=== PATIENT | female | born 1935 | race Caucasian/White ===

== ENCOUNTER 2022-12-07 12:31 | Inpatient (IN) | payer OTHER ==
[2022-12-07] MEDS ORDERED: LACTATED RINGERS SOLUTION 1000 ML INFUS.BAG IV ONE (13:21)
[2022-12-07] MEDS ORDERED: SODIUM CHLORIDE 1,000 ML IV STA (13:29)
[2022-12-07 14:36] LABS: LACTIC ACID 2.7 mmol/L (0.4-2.0)
[2022-12-07 14:48] LABS: VENOUS BASE EXCESS -1.5 mmol/L (-2-2); VENOUS O2 SATURATION 45.7 % (70-80); VENOUS PCO2 37.9 mmHg (38-52); VENOUS PH 7.402 (7.310-7.410)
[2022-12-07 14:52] LABS: BASO % 0.7 % (0-2.0); EOS % 2.3 % (0-4.5); HEMATOCRIT 26.1 % (32.4-45.2); HEMOGLOBIN 8.7 GM/dL (10.7-15.3); LYMPH % 10.8 % (8-40); MCH 31.6 pg (25.7-33.7); MCHC 33.3 g/dl (32.0-36.0); MEAN CELL VOLUME 95.1 fl (80-96); MEAN PLT VOLUME 10.2 fl (7.5-11.1); MONO % 4.5 % (3.8-10.2); NEUT % 81.7 % (42.8-82.8); PLATELET COUNT 376 10^3/uL (134-434); RBC 2.75 M/mm3 (3.60-5.2); RDW 17.6 % (11.6-15.6); WHITE BLOOD COUNT 8.6 K/mm3 (4.0-10.0)
[2022-12-07 14:58] LABS: EPI CELLS >36 /uL (0-25.1); HYALINE CASTS 2 /uL (0-3.1); URINE APPEARANCE CLEAR; URINE BACTERIA 20 /uL (0-1359); URINE BILIRUBIN NEGATIVE (NEGATIVE); URINE COLOR YELLOW; URINE GLUCOSE (UA) NEGATIVE (NEGATIVE); URINE KETONE NEGATIVE (NEGATIVE); URINE LEUK ESTERASE NEGATIVE (NEGATIVE); URINE NITRITE NEGATIVE (NEGATIVE); URINE PROTEIN NEGATIVE (NEGATIVE); URINE WBC 26 /uL (0-25.8)
[2022-12-07 15:00] LABS: INR 2.44 (0.83-1.09); PROTHROMBIN TIME (PATIENT) 28.1 SEC (9.7-13.0)
[2022-12-07 15:03] LABS: ACTIVATED PTT 35.7 SECONDS (25.2-36.5)
[2022-12-07 15:04] LABS: POTASSIUM 3.7 mmol/L (3.5-5.1)
[2022-12-07 15:07] LABS: ALBUMIN 3.2 g/dl (3.4-5.0); CALCIUM 8.7 mg/dL (8.5-10.1); MAGNESIUM 1.9 mg/dL (1.8-2.4)
[2022-12-07 15:10] LABS: CREATININE 0.9 mg/dL (0.55-1.3)
[2022-12-07 15:11] LABS: TOT PROT 7.1 g/dl (6.4-8.2)
[2022-12-07 15:12] LABS: BILIRUBIN,TOTAL 0.9 mg/dL (0.2-1)
[2022-12-07 15:16] LABS: URINE RBC 133.7 /uL (0-23.9)
[2022-12-07 19:30] LABS: LACTIC ACID 2.3 mmol/L (0.4-2.0)
[2022-12-07] MEDS ORDERED: levETIRAcetam 500 MG/5 ML INJECTION VIAL IVPB ONE (23:30)
[2022-12-08] MEDS ORDERED: levETIRAcetam 500 MG/5 ML INJECTION VIAL IVPB ONE ×2 (08:04→08:09)
[2022-12-08 08:54] LABS: POTASSIUM 3.5 mmol/L (3.5-5.1)
[2022-12-08 09:01] LABS: BLOOD UREA NITROGEN 28.1 mg/dL (7-18); MAGNESIUM 1.9 mg/dL (1.8-2.4); PHOSPHOROUS 3.4 mg/dL (2.5-4.9)
[2022-12-08 09:02] LABS: ALBUMIN 3.4 g/dl (3.4-5.0)
[2022-12-08 09:05] LABS: CREATININE 0.9 mg/dL (0.55-1.3)
[2022-12-08 09:06] LABS: BILIRUBIN,TOTAL 1.2 mg/dL (0.2-1); TOT PROT 7.1 g/dl (6.4-8.2)
[2022-12-08] MEDS ORDERED: levETIRAcetam 500 MG/5 ML INJECTION VIAL IVPB SCH (10:00)
[2022-12-08] MEDS: ASPIRIN COATED 81 MG TABLET.EC PO SCH (10:07)
[2022-12-08 10:25] LABS: BASO % 0.4 % (0-2.0); EOS % 0.5 % (0-4.5); HEMATOCRIT 26.2 % (32.4-45.2); HEMOGLOBIN 8.6 GM/dL (10.7-15.3); LYMPH % 8.9 % (8-40); MCH 32.1 pg (25.7-33.7); MEAN CELL VOLUME 97.3 fl (80-96); NEUT % 87.2 % (42.8-82.8); RBC 2.69 M/mm3 (3.60-5.2); RDW 18.7 % (11.6-15.6); WHITE BLOOD COUNT 11.6 K/mm3 (4.0-10.0)
[2022-12-08 10:33] LABS: MEAN PLT VOLUME 8.8 fl (7.5-11.1); PLATELET COUNT 231 10^3/uL (134-434)
[2022-12-08] MEDS: WARFARIN NA 2.5 MG TABLET PO SCH (17:34)
[2022-12-08] MEDS: levETIRAcetam 500 MG/5 ML INJECTION VIAL IVPB SCH (21:30)
[2022-12-08] MEDS: ATORVASTATIN CA 80 MG TABLET (FP) PO SCH ×2 (21:33→21:34)
[2022-12-08 22:07] LABS: INR 1.71 (0.83-1.09); PROTHROMBIN TIME (PATIENT) 19.7 SEC (9.7-13.0)
[2022-12-09 09:28] LABS: INR 1.56 (0.83-1.09)
[2022-12-09] MEDS: levETIRAcetam 500 MG/5 ML INJECTION VIAL IVPB SCH ×2 (09:43→21:04)
[2022-12-09] MEDS: ASPIRIN COATED 81 MG TABLET.EC PO SCH (09:43)
[2022-12-09] MEDS: ENOXAPARIN NA (PORCINE) 40 MG/0.4 ML DISP.SYRIN SQ SCH (09:43)
[2022-12-09 09:46] LABS: CHLORIDE 111 mmol/L (98-107); POTASSIUM 3.9 mmol/L (3.5-5.1); SODIUM 142 mmol/L (136-145)
[2022-12-09 09:55] LABS: HEMATOCRIT 23.4 % (32.4-45.2); HEMOGLOBIN 7.9 GM/dL (10.7-15.3); MCH 32.2 pg (25.7-33.7); MCHC 33.6 g/dl (32.0-36.0); MEAN CELL VOLUME 95.8 fl (80-96); MEAN PLT VOLUME 9.4 fl (7.5-11.1); PLATELET COUNT 288 10^3/uL (134-434); RBC 2.44 M/mm3 (3.60-5.2)
[2022-12-09] MEDS ORDERED: MIDODRINE HCL 5 MG TABLET PO SCH (10:00)
[2022-12-09] MEDS ORDERED: ENOXAPARIN NA (PORCINE) 60 MG/0.6 ML DISP.SYRIN SQ SCH (10:00)
[2022-12-09 10:04] LABS: CALCIUM 8.7 mg/dL (8.5-10.1)
[2022-12-09 10:05] LABS: ANION GAP 6 MMOL/L (8-16); BLOOD UREA NITROGEN 27.9 mg/dL (7-18); CO2 25 mmol/L (21-32)
[2022-12-09 10:06] LABS: GLUCOSE,RANDOM 91 mg/dL (74-106)
[2022-12-09 10:09] LABS: PHOSPHOROUS 3.1 mg/dL (2.5-4.9)
[2022-12-09 10:10] LABS: CREATININE 0.7 mg/dL (0.55-1.3); SGPT/ALT 36 U/L (13-61)
[2022-12-09 10:11] LABS: IRON SERUM 40 ug/dL (50-175); SGOT/AST 70 U/L (15-37); TOT PROT 6.4 g/dl (6.4-8.2)
[2022-12-09 10:12] LABS: ALK PHOS 102 U/L (45-117); TOTAL IRON BINDING CAPACITY 224 ug/dL (250-450)
[2022-12-09 10:13] LABS: BILIRUBIN,TOTAL 0.6 mg/dL (0.2-1)
[2022-12-09 14:28] VITALS: BMI 16.2
[2022-12-09] MEDS ORDERED: ACETAMINOPHEN 325 MG TABLET (FP) PO PRN (16:43)
[2022-12-09] MEDS: WARFARIN NA 2.5 MG TABLET PO SCH (18:45)
[2022-12-09] MEDS: ATORVASTATIN CA 80 MG TABLET (FP) PO SCH (21:04)
[2022-12-10 08:18] LABS: HEMOGLOBIN 7.9 GM/dL (10.7-15.3); MCH 31.9 pg (25.7-33.7); MCHC 32.9 g/dl (32.0-36.0); MEAN CELL VOLUME 96.7 fl (80-96); MEAN PLT VOLUME 9.5 fl (7.5-11.1); PLATELET COUNT 257 10^3/uL (134-434); RBC 2.48 M/mm3 (3.60-5.2); RDW 18.3 % (11.6-15.6); WHITE BLOOD COUNT 7.4 K/mm3 (4.0-10.0)
[2022-12-10 08:20] LABS: INR 1.28 (0.83-1.09); PROTHROMBIN TIME (PATIENT) 14.8 SEC (9.7-13.0)
[2022-12-10 08:35] LABS: POTASSIUM 3.9 mmol/L (3.5-5.1)
[2022-12-10 08:37] LABS: BLOOD UREA NITROGEN 26.2 mg/dL (7-18)
[2022-12-10 08:38] LABS: CALCIUM 8.2 mg/dL (8.5-10.1); MAGNESIUM 2.1 mg/dL (1.8-2.4)
[2022-12-10 08:41] LABS: CREATININE 0.7 mg/dL (0.55-1.3); PHOSPHOROUS 3.2 mg/dL (2.5-4.9)
[2022-12-10] MEDS: ENOXAPARIN NA (PORCINE) 40 MG/0.4 ML DISP.SYRIN SQ SCH (12:13)
[2022-12-10] MEDS: levETIRAcetam 500 MG/5 ML INJECTION VIAL IVPB SCH ×2 (12:13→23:15)
[2022-12-10] MEDS: WARFARIN NA 2.5 MG TABLET PO SCH (17:02)
[2022-12-10] MEDS: ATORVASTATIN CA 80 MG TABLET (FP) PO SCH (23:15)
[2022-12-11 08:50] LABS: HEMATOCRIT 26.1 % (32.4-45.2); HEMOGLOBIN 8.5 GM/dL (10.7-15.3); MCH 32.3 pg (25.7-33.7); MCHC 32.6 g/dl (32.0-36.0); MEAN CELL VOLUME 99.1 fl (80-96); MEAN PLT VOLUME 10.3 fl (7.5-11.1); PLATELET COUNT 300 10^3/uL (134-434); RBC 2.63 M/mm3 (3.60-5.2); RDW 18.6 % (11.6-15.6); WHITE BLOOD COUNT 7.1 K/mm3 (4.0-10.0)
[2022-12-11 08:52] LABS: INR 1.42 (0.83-1.09); PROTHROMBIN TIME (PATIENT) 16.4 SEC (9.7-13.0)
[2022-12-11 09:03] LABS: POTASSIUM 4.2 mmol/L (3.5-5.1)
[2022-12-11 09:06] LABS: BLOOD UREA NITROGEN 23.4 mg/dL (7-18); CALCIUM 8.3 mg/dL (8.5-10.1); MAGNESIUM 2.1 mg/dL (1.8-2.4)
[2022-12-11 09:09] LABS: PHOSPHOROUS 2.8 mg/dL (2.5-4.9)
[2022-12-11 09:10] LABS: CREATININE 0.7 mg/dL (0.55-1.3)
[2022-12-11 09:11] LABS: TOT PROT 6.5 g/dl (6.4-8.2)
[2022-12-11] MEDS: levETIRAcetam 500 MG/5 ML INJECTION VIAL IVPB SCH ×2 (09:17→21:18)
[2022-12-11] MEDS ORDERED: ENOXAPARIN NA (PORCINE) 40 MG/0.4 ML DISP.SYRIN SQ SCH (15:15)
[2022-12-11] MEDS ORDERED: WARFARIN NA 3 MG TABLET PO SCH (18:00)
[2022-12-11] MEDS: ATORVASTATIN CA 80 MG TABLET (FP) PO SCH (21:18)
[2022-12-11] MEDS: ENOXAPARIN NA (PORCINE) 40 MG/0.4 ML DISP.SYRIN SQ SCH (21:18)
[2022-12-12 08:59] LABS: HEMATOCRIT 25.3 % (32.4-45.2); HEMOGLOBIN 8.3 GM/dL (10.7-15.3); MCH 32.5 pg (25.7-33.7); MEAN CELL VOLUME 98.6 fl (80-96); PLATELET COUNT 282 10^3/uL (134-434); RBC 2.57 M/mm3 (3.60-5.2); RDW 18.9 % (11.6-15.6); WHITE BLOOD COUNT 7.7 K/mm3 (4.0-10.0)
[2022-12-12 09:05] LABS: INR 1.51 (0.83-1.09); PROTHROMBIN TIME (PATIENT) 17.5 SEC (9.7-13.0)
[2022-12-12 09:25] VITALS: RESP 18
[2022-12-12 09:27] LABS: POTASSIUM 4.7 mmol/L (3.5-5.1)
[2022-12-12 09:33] LABS: CALCIUM 8.1 mg/dL (8.5-10.1)
[2022-12-12 09:34] LABS: BLOOD UREA NITROGEN 20.6 mg/dL (7-18)
[2022-12-12 09:36] LABS: PHOSPHOROUS 2.9 mg/dL (2.5-4.9)
[2022-12-12 09:37] LABS: CREATININE 0.7 mg/dL (0.55-1.3); TOT PROT 6.7 g/dl (6.4-8.2)
[2022-12-12] MEDS: ENOXAPARIN NA (PORCINE) 40 MG/0.4 ML DISP.SYRIN SQ SCH (09:40)
[2022-12-12] MEDS: levETIRAcetam 500 MG/5 ML INJECTION VIAL IVPB SCH (09:40)
[2022-12-12 15:16] VITALS: BP 110/42; PULSE 61; TEMP 98.1
== END 2022-12-12 17:08 | disposition home or self-care (01) | DRG 65 ==
LOC: JER 12:31 → JERBED 20:00 → J4W 12-08 00:22
PROVIDERS: ADMIT Internal Medicine; ATTEND Internal Medicine
DX: I63.511 Cerebral infarction due to unspecified occlusion or stenosis of right middle cerebral artery (principal); I50.32 Chronic diastolic (congestive) heart failure; I69.354 Hemiplegia and hemiparesis following cerebral infarction affecting left non-dominant side; I82.621 Acute embolism and thrombosis of deep veins of right upper extremity; I49.9 Cardiac arrhythmia, unspecified; R55 Syncope and collapse; D50.9 Iron deficiency anemia, unspecified; I11.0 Hypertensive heart disease with heart failure; J44.9 Chronic obstructive pulmonary disease, unspecified; E78.5 Hyperlipidemia, unspecified; I95.9 Hypotension, unspecified; R56.9 Unspecified convulsions; R79.1 Abnormal coagulation profile; I67.2 Cerebral atherosclerosis; I48.91 Unspecified atrial fibrillation; E11.9 Type 2 diabetes mellitus without complications; I69.398 Other sequelae of cerebral infarction; Z86.718 Personal history of other venous thrombosis and embolism; Z95.2 Presence of prosthetic heart valve
CPT/HCPCS: 36415; 70450-TC; 70551-TC; 71045-TC-FY; 71275-TC; 80048; 80053; 81003; 82607; 82728; 82746; 82747; 82803; 82962; 83010; 83540; 83550; 83605; 83615; 83735; 84100; 84439; 84443; 84484; 85014; 85025; 85027; 85045; 85610; 85730; 86780; 87040; 87086; 93005; 93010; 93306-TC; 93971; 95816; 97116-GP; 97162-GP; 99285-25; Q9967

== ENCOUNTER 2023-03-03 18:11 | Inpatient (IN) | payer OTHER ==
[2023-03-03 18:21] VITALS: BMI 14.6
[2023-03-03 20:04] LABS: BASO % 0.9 % (0-2.0); EOS % 3.4 % (0-4.5); HEMATOCRIT 19.7 % (32.4-45.2); MCH 32.6 pg (25.7-33.7); MCHC 34.2 g/dl (32.0-36.0); MEAN CELL VOLUME 95.6 fl (80-96); MEAN PLT VOLUME 8.8 fl (7.5-11.1); MONO % 4.8 % (3.8-10.2); NEUT % 76.9 % (42.8-82.8); PLATELET COUNT 294 10^3/uL (134-434); RBC 2.07 M/mm3 (3.60-5.2); RDW 34.4 % (11.6-15.6); WHITE BLOOD COUNT 9.5 K/mm3 (4.0-10.0)
[2023-03-03 20:07] LABS: HEMOGLOBIN 6.7 GM/dL (10.7-15.3)
[2023-03-03 20:18] LABS: POTASSIUM 3.4 mmol/L (3.5-5.1)
[2023-03-03 20:20] LABS: CALCIUM 7.9 mg/dL (8.5-10.1)
[2023-03-03 20:21] LABS: BLOOD UREA NITROGEN 33.8 mg/dL (7-18); MAGNESIUM 1.5 mg/dL (1.8-2.4)
[2023-03-03 20:26] LABS: BILIRUBIN,TOTAL 1.7 mg/dL (0.2-1); TOT PROT 6.8 g/dl (6.4-8.2)
[2023-03-03] MEDS ORDERED: MAGNESIUM 1GM/D5W - 1 GM/100 ML IVPB IVPB ONE ×2 (20:31→21:02)
[2023-03-03] MEDS ORDERED: POTASSIUM CHLORIDE ORAL LIQUID 20 MEQ/15 ML PO ONE (20:31)
[2023-03-03] MEDS ORDERED: POTASSIUM CHLORIDE ORAL LIQUID 20 MEQ/15 ML ONE (21:01)
[2023-03-03 21:22] LABS: EPI CELLS 1 /uL (0-25.1); HYALINE CASTS 0 /uL (0-3.1); PH,URINE 5.5 (5.0-8.0); URINE APPEARANCE CLEAR; URINE BACTERIA 1177 /uL (0-1359); URINE BILIRUBIN NEGATIVE (NEGATIVE); URINE COLOR YELLOW; URINE GLUCOSE (UA) NEGATIVE (NEGATIVE); URINE KETONE NEGATIVE (NEGATIVE); URINE LEUK ESTERASE 2+ (NEGATIVE); URINE NITRITE NEGATIVE (NEGATIVE); URINE PROTEIN 2+ (NEGATIVE); URINE WBC 861 /uL (0-25.8)
[2023-03-03] MEDS ORDERED: CEFTRIAXONE 1,000 MG in DEXTROSE 5%-WATER - 50 ML IVPB ONE (21:25)
[2023-03-03 21:30] LABS: URINE RBC 1207.9 /uL (0-23.9)
[2023-03-03] MEDS ORDERED: CEFTRIAXONE 1 GM/50 ML BAG ONE (21:32)
[2023-03-03 21:38] LABS: POTASSIUM 3.4 mmol/L (3.5-5.1)
[2023-03-03 21:40] LABS: CALCIUM 7.6 mg/dL (8.5-10.1)
[2023-03-03 21:41] LABS: BLOOD UREA NITROGEN 33.5 mg/dL (7-18)
[2023-03-03 21:43] LABS: CREATININE 0.9 mg/dL (0.55-1.3)
[2023-03-03] MEDS ORDERED: ACETAMINOPHEN 1000 MG/100 ML BAG IVPB ONE (22:12)
[2023-03-03] MEDS ORDERED: ACETAMINOPHEN INJECTION 100 ML IVPB ONE (22:15)
[2023-03-04] MEDS ORDERED: FUROSEMIDE 100 MG/10 ML INJECTABLE VIAL IVPUSH SCH (00:30)
[2023-03-04] MEDS ORDERED: FUROSEMIDE 40 MG/4 ML INJECTABLE VIAL ONE ×2 (00:51→13:52)
[2023-03-04] MEDS ORDERED: FUROSEMIDE 40 MG/4 ML INJECTABLE VIAL IVPUSH SCH (01:00)
[2023-03-04 01:17] LABS: INR 1.82 (0.83-1.09)
[2023-03-04 07:13] LABS: HEMATOCRIT 32.1 % (32.4-45.2); HEMOGLOBIN 10.8 GM/dL (10.7-15.3); MCH 31.2 pg (25.7-33.7); MCHC 33.5 g/dl (32.0-36.0); MEAN CELL VOLUME 93.1 fl (80-96); MEAN PLT VOLUME 8.4 fl (7.5-11.1); PLATELET COUNT 273 10^3/uL (134-434); RBC 3.45 M/mm3 (3.60-5.2); RDW 20.6 % (11.6-15.6); RETICULOCYTES 6.47 % (0.5-1.5); WHITE BLOOD COUNT 8.2 K/mm3 (4.0-10.0)
[2023-03-04 07:30] LABS: POTASSIUM 3.8 mmol/L (3.5-5.1)
[2023-03-04 07:32] LABS: ALBUMIN 3.1 g/dl (3.4-5.0); BLOOD UREA NITROGEN 32.6 mg/dL (7-18); CALCIUM 7.6 mg/dL (8.5-10.1); MAGNESIUM 1.8 mg/dL (1.8-2.4)
[2023-03-04 07:35] LABS: BILIRUBIN,DIRECT 0.5 mg/dL (0.0-0.2); PHOSPHOROUS 3.6 mg/dL (2.5-4.9)
[2023-03-04 07:37] LABS: BILIRUBIN,TOTAL 1.7 mg/dL (0.2-1)
[2023-03-04 07:38] LABS: INR 1.78 (0.83-1.09); PROTHROMBIN TIME (PATIENT) 20.5 SEC (9.7-13.0)
[2023-03-04 07:40] LABS: N-TERMINAL BNP 16141.2 pg/ml (5-450)
[2023-03-04] MEDS ORDERED: FERROUS SO4 325 MG TABLET (FP) ONE (08:32)
[2023-03-04] MEDS ORDERED: levETIRAcetam 500 MG TABLET (FP) PO ONE ×2 (08:32→21:05)
[2023-03-04] MEDS: levETIRAcetam 500 MG TABLET (FP) PO SCH ×2 (09:21→21:09)
[2023-03-04] MEDS ORDERED: FERROUS SO4 325 MG TABLET (FP) PO SCH (10:00)
[2023-03-04] MEDS ORDERED: CEFTRIAXONE 1 GM in DEXTROSE 5%-WATER - 50 ML IVPB ONE ×2 (11:00→21:30)
[2023-03-04] MEDS ORDERED: CEFTRIAXONE 1 GM/50 ML BAG ONE (11:03)
[2023-03-04] MEDS: FUROSEMIDE 40 MG/4 ML INJECTABLE VIAL IVPUSH SCH (13:56)
[2023-03-04] MEDS ORDERED: WARFARIN NA 3 MG TABLET PO SCH (18:00)
[2023-03-04] MEDS ORDERED: ATORVASTATIN CA 80 MG TABLET (FP) ONE (21:05)
[2023-03-04] MEDS ORDERED: DONEPEZIL HCL 5 MG TABLET (FP) ONE (21:05)
[2023-03-04] MEDS ORDERED: DONEPEZIL HCL 5 MG TABLET (FP) PO SCH (22:00)
[2023-03-04] MEDS ORDERED: ATORVASTATIN CA 80 MG TABLET (FP) PO SCH (22:00)
[2023-03-05] MEDS ORDERED: FUROSEMIDE 40 MG/4 ML INJECTABLE VIAL ONE (00:23)
[2023-03-05] MEDS: FUROSEMIDE 40 MG/4 ML INJECTABLE VIAL IVPUSH SCH (00:27)
[2023-03-05 09:26] LABS: BASO % 0.5 % (0-2.0); EOS % 2.1 % (0-4.5); HEMATOCRIT 32.5 % (32.4-45.2); HEMOGLOBIN 10.8 GM/dL (10.7-15.3); LYMPH % 13.6 % (8-40); MCH 30.6 pg (25.7-33.7); MCHC 33.4 g/dl (32.0-36.0); MEAN CELL VOLUME 91.7 fl (80-96); MEAN PLT VOLUME 9.6 fl (7.5-11.1); MONO % 5.2 % (3.8-10.2); NEUT % 78.6 % (42.8-82.8); PLATELET COUNT 298 10^3/uL (134-434); RBC 3.54 M/mm3 (3.60-5.2); RDW 21.1 % (11.6-15.6); WHITE BLOOD COUNT 8.6 K/mm3 (4.0-10.0)
[2023-03-05 09:34] LABS: INR 1.86 (0.83-1.09); PROTHROMBIN TIME (PATIENT) 21.4 SEC (9.7-13.0)
[2023-03-05 09:36] LABS: ACTIVATED PTT 31.8 SECONDS (25.2-36.5)
[2023-03-05 09:45] LABS: POTASSIUM 3.2 mmol/L (3.5-5.1)
[2023-03-05 09:47] LABS: CALCIUM 8.2 mg/dL (8.5-10.1)
[2023-03-05 09:48] LABS: ALBUMIN 3.1 g/dl (3.4-5.0)
[2023-03-05 09:52] LABS: BILIRUBIN,DIRECT 0.5 mg/dL (0.0-0.2); CREATININE 1.1 mg/dL (0.55-1.3)
[2023-03-05 09:55] LABS: BILIRUBIN,TOTAL 1.6 mg/dL (0.2-1)
[2023-03-05] MEDS: levETIRAcetam 500 MG TABLET (FP) PO SCH ×3 (10:26→22:29)
[2023-03-05] MEDS: FERROUS SO4 325 MG TABLET (FP) PO SCH (10:26)
[2023-03-05] MEDS: CEFTRIAXONE 1 GM in DEXTROSE 5%-WATER - 50 ML IVPB SCH (10:26)
[2023-03-05 12:01] LABS: ANISOCYTOSIS 2+; MACROCYTOSIS 0; PLATELET ESTIMATE NORMAL
[2023-03-05] MEDS ORDERED: FUROSEMIDE 40 MG/4 ML INJECTABLE VIAL IVPUSH SCH (13:00)
[2023-03-05] MEDS: WARFARIN NA 3 MG TABLET PO SCH (17:08)
[2023-03-05] MEDS: ATORVASTATIN CA 80 MG TABLET (FP) PO SCH ×2 (22:25→22:30)
[2023-03-05] MEDS: DONEPEZIL HCL 5 MG TABLET (FP) PO SCH ×2 (22:25→22:30)
[2023-03-06 08:09] LABS: HEMATOCRIT 33.7 % (32.4-45.2); HEMOGLOBIN 11.5 GM/dL (10.7-15.3); MCH 31.3 pg (25.7-33.7); MEAN CELL VOLUME 92.2 fl (80-96); MEAN PLT VOLUME 9.3 fl (7.5-11.1); PLATELET COUNT 304 10^3/uL (134-434); RBC 3.66 M/mm3 (3.60-5.2); RDW 21.1 % (11.6-15.6); WHITE BLOOD COUNT 7.9 K/mm3 (4.0-10.0)
[2023-03-06 08:18] LABS: INR 2.07 (0.83-1.09); PROTHROMBIN TIME (PATIENT) 23.8 SEC (9.7-13.0)
[2023-03-06 08:28] LABS: POTASSIUM 3.6 mmol/L (3.5-5.1)
[2023-03-06 08:30] LABS: BLOOD UREA NITROGEN 49.9 mg/dL (7-18); CALCIUM 8.2 mg/dL (8.5-10.1); MAGNESIUM 1.7 mg/dL (1.8-2.4)
[2023-03-06 08:31] LABS: ALBUMIN 3.2 g/dl (3.4-5.0)
[2023-03-06 08:33] LABS: CREATININE 1.3 mg/dL (0.55-1.3)
[2023-03-06 08:34] LABS: PHOSPHOROUS 4.8 mg/dL (2.5-4.9)
[2023-03-06 08:35] LABS: TOT PROT 7.4 g/dl (6.4-8.2)
[2023-03-06 08:36] LABS: BILIRUBIN,TOTAL 1.3 mg/dL (0.2-1)
[2023-03-06] MEDS ORDERED: TORSEMIDE 10 MG TABLET PO SCH (10:00)
[2023-03-06] MEDS: levETIRAcetam 500 MG TABLET (FP) PO SCH ×3 (10:09→21:01)
[2023-03-06] MEDS: PANTOPRAZOLE 40 MG TABLET PO SCH (10:09)
[2023-03-06] MEDS: FERROUS SO4 325 MG TABLET (FP) PO SCH (10:09)
[2023-03-06] MEDS: CEFTRIAXONE 1 GM in DEXTROSE 5%-WATER - 50 ML IVPB SCH (10:10)
[2023-03-06] MEDS: TORSEMIDE 10 MG TABLET PO SCH (10:10)
[2023-03-06] MEDS ORDERED: MAGNESIUM SULF 50% (8.12 MEQ/2 ML-1 GM VIAL) IVPB ONE (14:00)
[2023-03-06] MEDS ORDERED: POTASSIUM CHLORIDE ORAL LIQUID 20 MEQ/15 ML PO ONE (14:00)
[2023-03-06] MEDS ORDERED: PIPERACILLIN/TAZOB 3.375 GM 3.375 GM in DEXTROSE 5%-WATER - 50 ML IVPB SCH (14:00)
[2023-03-06] MEDS: WARFARIN NA 3 MG TABLET PO SCH (18:00)
[2023-03-06] MEDS: PIPERACILLIN/TAZOB 2.25 GM 2.25 GM in DEXTROSE 5%-WATER - 50 ML IVPB SCH (18:55)
[2023-03-06] MEDS: ATORVASTATIN CA 80 MG TABLET (FP) PO SCH ×2 (20:55→21:01)
[2023-03-06] MEDS: DONEPEZIL HCL 5 MG TABLET (FP) PO SCH ×2 (20:55→21:01)
[2023-03-07] MEDS: PIPERACILLIN/TAZOB 2.25 GM 2.25 GM in DEXTROSE 5%-WATER - 50 ML IVPB SCH ×3 (01:09→18:05)
[2023-03-07 08:25] LABS: BASO % 0.7 % (0-2.0); EOS % 4.3 % (0-4.5); HEMATOCRIT 33.3 % (32.4-45.2); HEMOGLOBIN 11.1 GM/dL (10.7-15.3); MCH 30.6 pg (25.7-33.7); MCHC 33.3 g/dl (32.0-36.0); MEAN CELL VOLUME 91.9 fl (80-96); MEAN PLT VOLUME 9.2 fl (7.5-11.1); MONO % 5.4 % (3.8-10.2); NEUT % 78.6 % (42.8-82.8); PLATELET COUNT 304 10^3/uL (134-434); RBC 3.63 M/mm3 (3.60-5.2); WHITE BLOOD COUNT 7.5 K/mm3 (4.0-10.0)
[2023-03-07 08:37] LABS: INR 1.93 (0.83-1.09); PROTHROMBIN TIME (PATIENT) 22.2 SEC (9.7-13.0)
[2023-03-07 08:51] LABS: BILIRUBIN,TOTAL 1.2 mg/dL (0.2-1); CALCIUM 8.4 mg/dL (8.5-10.1); CREATININE 1.4 mg/dL (0.55-1.3); MAGNESIUM 2.7 mg/dL (1.8-2.4); PHOSPHOROUS 4.7 mg/dL (2.5-4.9); POTASSIUM 3.9 mmol/L (3.5-5.1); TOT PROT 7.1 g/dl (6.4-8.2)
[2023-03-07] MEDS: PANTOPRAZOLE 40 MG TABLET PO SCH (09:29)
[2023-03-07] MEDS: levETIRAcetam 500 MG TABLET (FP) PO SCH ×2 (09:29→22:39)
[2023-03-07] MEDS: TORSEMIDE 10 MG TABLET PO SCH (09:29)
[2023-03-07] MEDS: FERROUS SO4 325 MG TABLET (FP) PO SCH (09:29)
[2023-03-07 10:49] LABS: BILIRUBIN,DIRECT 0.4 mg/dL (0.0-0.2)
[2023-03-07 16:08] LABS: GLIADIN ANTIBODY IGA 9 units (0-19); GLIADIN ANTIBODY IGG 1 units (0-19); TRANSGLUTAMINASE IGG < 2 U/mL (0-5)
[2023-03-07] MEDS: WARFARIN NA 3 MG TABLET PO SCH (18:05)
[2023-03-07] MEDS: ATORVASTATIN CA 80 MG TABLET (FP) PO SCH (22:39)
[2023-03-07] MEDS: DONEPEZIL HCL 5 MG TABLET (FP) PO SCH (22:40)
[2023-03-08] MEDS ORDERED: PIPERACILLIN/TAZOBACTAM 2.25 GM VIAL IVPB ONE (02:36)
[2023-03-08] MEDS: PIPERACILLIN/TAZOB 2.25 GM 2.25 GM in DEXTROSE 5%-WATER - 50 ML IVPB SCH ×3 (02:47→18:58)
[2023-03-08] MEDS: FERROUS SO4 325 MG TABLET (FP) PO SCH (11:41)
[2023-03-08] MEDS: PANTOPRAZOLE 40 MG TABLET PO SCH (11:42)
[2023-03-08] MEDS: levETIRAcetam 500 MG TABLET (FP) PO SCH ×2 (11:42→23:00)
[2023-03-08] MEDS: TORSEMIDE 10 MG TABLET PO SCH (11:42)
[2023-03-08 12:35] LABS: HEMOGLOBIN 10.6 GM/dL (10.7-15.3); MCH 31.7 pg (25.7-33.7); MCHC 34.2 g/dl (32.0-36.0); MEAN CELL VOLUME 92.7 fl (80-96); MEAN PLT VOLUME 9.1 fl (7.5-11.1); PLATELET COUNT 294 10^3/uL (134-434); RBC 3.35 M/mm3 (3.60-5.2); WHITE BLOOD COUNT 7.8 K/mm3 (4.0-10.0)
[2023-03-08 12:39] LABS: INR 2.08 (0.83-1.09)
[2023-03-08 13:07] LABS: ALBUMIN 3.1 g/dl (3.4-5.0); CALCIUM 8.7 mg/dL (8.5-10.1)
[2023-03-08 13:08] LABS: BLOOD UREA NITROGEN 56.7 mg/dL (7-18); MAGNESIUM 2.4 mg/dL (1.8-2.4); PHOSPHOROUS 4.4 mg/dL (2.5-4.9)
[2023-03-08 13:10] LABS: BILIRUBIN,TOTAL 1.4 mg/dL (0.2-1); CREATININE 1.5 mg/dL (0.55-1.3); TOT PROT 7.4 g/dl (6.4-8.2)
[2023-03-08] MEDS: WARFARIN NA 3 MG TABLET PO SCH (18:58)
[2023-03-08] MEDS: DONEPEZIL HCL 5 MG TABLET (FP) PO SCH (23:00)
[2023-03-08] MEDS: ATORVASTATIN CA 80 MG TABLET (FP) PO SCH (23:01)
[2023-03-09] MEDS: PIPERACILLIN/TAZOB 2.25 GM 2.25 GM in DEXTROSE 5%-WATER - 50 ML IVPB SCH (02:17)
[2023-03-09] MEDS: AMOX TR/POT CLAV 875MG/125MG TABLETS (FP) PO SCH ×2 (09:15→17:49)
[2023-03-09 09:18] LABS: HEMATOCRIT 29.5 % (32.4-45.2); HEMOGLOBIN 9.9 GM/dL (10.7-15.3); MCH 31.7 pg (25.7-33.7); MCHC 33.7 g/dl (32.0-36.0); MEAN PLT VOLUME 8.7 fl (7.5-11.1); PLATELET COUNT 271 10^3/uL (134-434); RBC 3.14 M/mm3 (3.60-5.2); RDW 20.2 % (11.6-15.6)
[2023-03-09 09:34] LABS: CALCIUM 8.9 mg/dL (8.5-10.1); MAGNESIUM 2.2 mg/dL (1.8-2.4)
[2023-03-09 09:35] LABS: BLOOD UREA NITROGEN 53.3 mg/dL (7-18)
[2023-03-09 09:37] LABS: PHOSPHOROUS 4.2 mg/dL (2.5-4.9)
[2023-03-09 09:38] LABS: BILIRUBIN,TOTAL 2.2 mg/dL (0.2-1); CREATININE 1.4 mg/dL (0.55-1.3); TOT PROT 6.9 g/dl (6.4-8.2)
[2023-03-09] MEDS: levETIRAcetam 500 MG TABLET (FP) PO SCH ×2 (10:41→21:12)
[2023-03-09] MEDS: TORSEMIDE 10 MG TABLET PO SCH (10:42)
[2023-03-09] MEDS: FERROUS SO4 325 MG TABLET (FP) PO SCH (10:42)
[2023-03-09] MEDS: PANTOPRAZOLE 40 MG TABLET PO SCH (10:42)
[2023-03-09 15:44] LABS: INR 1.67 (0.83-1.09); PROTHROMBIN TIME (PATIENT) 19.3 SEC (9.7-13.0)
[2023-03-09] MEDS: WARFARIN NA 3 MG TABLET PO SCH (17:49)
[2023-03-09] MEDS: DONEPEZIL HCL 5 MG TABLET (FP) PO SCH (21:12)
[2023-03-09] MEDS: ATORVASTATIN CA 80 MG TABLET (FP) PO SCH (21:12)
[2023-03-10] MEDS: AMOX TR/POT CLAV 875MG/125MG TABLETS (FP) PO SCH (09:17)
[2023-03-10] MEDS: MULTIVITAMINS (DAILY MVI) TABLET (FP) PO SCH (09:37)
[2023-03-10] MEDS: PANTOPRAZOLE 40 MG TABLET PO SCH (09:37)
[2023-03-10] MEDS: FERROUS SO4 325 MG TABLET (FP) PO SCH (09:37)
[2023-03-10] MEDS: levETIRAcetam 500 MG TABLET (FP) PO SCH ×2 (09:37→21:29)
[2023-03-10 10:27] LABS: BASO % 1.1 % (0-2.0); EOS % 4.9 % (0-4.5); HEMOGLOBIN 10.2 GM/dL (10.7-15.3); MCH 33.1 pg (25.7-33.7); MCHC 36.2 g/dl (32.0-36.0); MEAN CELL VOLUME 91.3 fl (80-96); MEAN PLT VOLUME 9.4 fl (7.5-11.1); MONO % 6.2 % (3.8-10.2); NEUT % 69.8 % (42.8-82.8); PLATELET COUNT 270 10^3/uL (134-434); RBC 3.07 M/mm3 (3.60-5.2); RDW 20.2 % (11.6-15.6); WHITE BLOOD COUNT 6.5 K/mm3 (4.0-10.0)
[2023-03-10 11:04] LABS: POTASSIUM 4.1 mmol/L (3.5-5.1)
[2023-03-10 11:07] LABS: CALCIUM 8.4 mg/dL (8.5-10.1)
[2023-03-10 11:08] LABS: BLOOD UREA NITROGEN 53.3 mg/dL (7-18)
[2023-03-10 11:11] LABS: CREATININE 1.4 mg/dL (0.55-1.3)
[2023-03-10 11:13] LABS: BILIRUBIN,TOTAL 1.5 mg/dL (0.2-1); TOT PROT 6.9 g/dl (6.4-8.2)
[2023-03-10] MEDS: WARFARIN NA 3 MG TABLET PO SCH ×2 (17:47→19:01)
[2023-03-10 19:48] LABS: INR 1.75 (0.83-1.09); PROTHROMBIN TIME (PATIENT) 20.2 SEC (9.7-13.0)
[2023-03-10] MEDS: DONEPEZIL HCL 5 MG TABLET (FP) PO SCH (21:29)
[2023-03-10] MEDS: ATORVASTATIN CA 80 MG TABLET (FP) PO SCH (21:30)
[2023-03-11] MEDS: AMOX TR/POT CLAV 250MG/125MG TABLETS PO SCH ×2 (08:27→17:19)
[2023-03-11] MEDS: PANTOPRAZOLE 40 MG TABLET PO SCH (09:29)
[2023-03-11] MEDS: levETIRAcetam 500 MG TABLET (FP) PO SCH ×2 (09:29→23:02)
[2023-03-11] MEDS: MULTIVITAMINS (DAILY MVI) TABLET (FP) PO SCH (09:29)
[2023-03-11] MEDS: FERROUS SO4 325 MG TABLET (FP) PO SCH (09:29)
[2023-03-11 12:13] LABS: BASO % 0.9 % (0-2.0); EOS % 4.7 % (0-4.5); HEMATOCRIT 29.3 % (32.4-45.2); HEMOGLOBIN 10.3 GM/dL (10.7-15.3); LYMPH % 15.3 % (8-40); MCH 32.6 pg (25.7-33.7); MCHC 35.4 g/dl (32.0-36.0); MEAN CELL VOLUME 92.2 fl (80-96); MEAN PLT VOLUME 9.4 fl (7.5-11.1); MONO % 5.6 % (3.8-10.2); NEUT % 73.5 % (42.8-82.8); PLATELET COUNT 300 10^3/uL (134-434); RBC 3.17 M/mm3 (3.60-5.2); RDW 19.5 % (11.6-15.6); WHITE BLOOD COUNT 7.2 K/mm3 (4.0-10.0)
[2023-03-11 12:18] LABS: INR 1.67 (0.83-1.09); PROTHROMBIN TIME (PATIENT) 19.3 SEC (9.7-13.0)
[2023-03-11 12:46] LABS: CALCIUM 8.5 mg/dL (8.5-10.1)
[2023-03-11 12:47] LABS: BLOOD UREA NITROGEN 55.7 mg/dL (7-18)
[2023-03-11 12:49] LABS: BILIRUBIN,DIRECT 0.4 mg/dL (0.0-0.2)
[2023-03-11 12:50] LABS: CREATININE 1.3 mg/dL (0.55-1.3)
[2023-03-11 12:51] LABS: BILIRUBIN,TOTAL 1.7 mg/dL (0.2-1); TOT PROT 7.3 g/dl (6.4-8.2)
[2023-03-11] MEDS: WARFARIN NA 5 MG TABLET PO SCH (17:19)
[2023-03-11] MEDS: DONEPEZIL HCL 5 MG TABLET (FP) PO SCH (23:02)
[2023-03-11] MEDS: ATORVASTATIN CA 80 MG TABLET (FP) PO SCH (23:02)
[2023-03-12 09:36] LABS: INR 1.81 (0.83-1.09); PROTHROMBIN TIME (PATIENT) 20.9 SEC (9.7-13.0)
[2023-03-12 09:38] LABS: BASO % 1.2 % (0-2.0); EOS % 4.6 % (0-4.5); HEMATOCRIT 26.8 % (32.4-45.2); HEMOGLOBIN 9.4 GM/dL (10.7-15.3); LYMPH % 13.2 % (8-40); MCH 32.3 pg (25.7-33.7); MCHC 35.2 g/dl (32.0-36.0); MEAN CELL VOLUME 91.8 fl (80-96); MEAN PLT VOLUME 9.3 fl (7.5-11.1); MONO % 5.4 % (3.8-10.2); NEUT % 75.6 % (42.8-82.8); PLATELET COUNT 249 10^3/uL (134-434); RBC 2.92 M/mm3 (3.60-5.2); RDW 19.2 % (11.6-15.6)
[2023-03-12 09:49] LABS: POTASSIUM 4.5 mmol/L (3.5-5.1)
[2023-03-12 09:57] LABS: CALCIUM 8.4 mg/dL (8.5-10.1)
[2023-03-12 09:58] LABS: ALBUMIN 2.8 g/dl (3.4-5.0)
[2023-03-12 10:01] LABS: CREATININE 1.2 mg/dL (0.55-1.3)
[2023-03-12 10:02] LABS: TOT PROT 6.6 g/dl (6.4-8.2)
[2023-03-12 10:03] LABS: BILIRUBIN,TOTAL 1.2 mg/dL (0.2-1)
[2023-03-12] MEDS: AMOX TR/POT CLAV 250MG/125MG TABLETS PO SCH ×2 (11:59→17:01)
[2023-03-12] MEDS: PANTOPRAZOLE 40 MG TABLET PO SCH (11:59)
[2023-03-12] MEDS: MULTIVITAMINS (DAILY MVI) TABLET (FP) PO SCH (11:59)
[2023-03-12] MEDS: FERROUS SO4 325 MG TABLET (FP) PO SCH (11:59)
[2023-03-12] MEDS: levETIRAcetam 500 MG TABLET (FP) PO SCH ×2 (12:00→22:08)
[2023-03-12] MEDS: SODIUM CHLORIDE 1,000 ML IV SCH (12:01)
[2023-03-12] MEDS ORDERED: WARFARIN NA 5 MG TABLET PO ONE (18:00)
[2023-03-12] MEDS: WARFARIN NA 5 MG TABLET PO SCH (18:24)
[2023-03-12] MEDS: ATORVASTATIN CA 80 MG TABLET (FP) PO SCH (22:07)
[2023-03-12] MEDS: DONEPEZIL HCL 5 MG TABLET (FP) PO SCH (22:08)
[2023-03-13 08:18] LABS: INR 2.5 (0.83-1.09); PROTHROMBIN TIME (PATIENT) 28.7 SEC (9.7-13.0)
[2023-03-13 08:40] LABS: BASO % 1.2 % (0-2.0); EOS % 5.1 % (0-4.5); HEMATOCRIT 26.1 % (32.4-45.2); HEMOGLOBIN 8.5 GM/dL (10.7-15.3); LYMPH % 13.6 % (8-40); MCH 30.6 pg (25.7-33.7); MCHC 32.5 g/dl (32.0-36.0); MEAN PLT VOLUME 9.3 fl (7.5-11.1); MONO % 5.6 % (3.8-10.2); NEUT % 74.5 % (42.8-82.8); PLATELET COUNT 238 10^3/uL (134-434); RBC 2.77 M/mm3 (3.60-5.2); RDW 19.8 % (11.6-15.6); WHITE BLOOD COUNT 7.2 K/mm3 (4.0-10.0)
[2023-03-13 08:44] LABS: MAGNESIUM 1.9 mg/dL (1.8-2.4)
[2023-03-13] MEDS: AMOX TR/POT CLAV 250MG/125MG TABLETS PO SCH ×2 (08:46→17:10)
[2023-03-13 08:47] LABS: PHOSPHOROUS 3.3 mg/dL (2.5-4.9)
[2023-03-13] MEDS: levETIRAcetam 500 MG TABLET (FP) PO SCH ×2 (09:13→21:37)
[2023-03-13] MEDS: PANTOPRAZOLE 40 MG TABLET PO SCH (09:13)
[2023-03-13] MEDS: MULTIVITAMINS (DAILY MVI) TABLET (FP) PO SCH (09:13)
[2023-03-13] MEDS: FERROUS SO4 325 MG TABLET (FP) PO SCH (09:13)
[2023-03-13] MEDS: AMINO ACIDS 4.25%/D5W 1,000 ML IV SCH (09:57)
[2023-03-13] MEDS: THIAMINE HCL 200 MG/2 ML VIAL IVPB SCH (09:58)
[2023-03-13] MEDS ORDERED: FAMOTIDINE 10 MG TABLET PO SCH (10:00)
[2023-03-13] MEDS: SODIUM CHLORIDE 1,000 ML IV SCH (10:14)
[2023-03-13] MEDS: WARFARIN NA 5 MG TABLET PO SCH (18:11)
[2023-03-13] MEDS: ATORVASTATIN CA 80 MG TABLET (FP) PO SCH (21:37)
[2023-03-13] MEDS: DONEPEZIL HCL 5 MG TABLET (FP) PO SCH (21:37)
[2023-03-14 08:37] LABS: HEMATOCRIT 24.7 % (32.4-45.2); HEMOGLOBIN 8.3 GM/dL (10.7-15.3); MCH 31.3 pg (25.7-33.7); MCHC 33.4 g/dl (32.0-36.0); MEAN CELL VOLUME 93.8 fl (80-96); MEAN PLT VOLUME 9.8 fl (7.5-11.1); PLATELET COUNT 228 10^3/uL (134-434); RBC 2.64 M/mm3 (3.60-5.2); RDW 19.3 % (11.6-15.6); WHITE BLOOD COUNT 6.4 K/mm3 (4.0-10.0)
[2023-03-14 08:43] LABS: INR 3.19 (0.83-1.09); PROTHROMBIN TIME (PATIENT) 36.6 SEC (9.7-13.0)
[2023-03-14 09:07] LABS: POTASSIUM 4.5 mmol/L (3.5-5.1)
[2023-03-14 09:11] LABS: ALBUMIN 2.6 g/dl (3.4-5.0); BLOOD UREA NITROGEN 49.8 mg/dL (7-18); CALCIUM 7.9 mg/dL (8.5-10.1)
[2023-03-14 09:12] LABS: MAGNESIUM 1.9 mg/dL (1.8-2.4)
[2023-03-14 09:15] LABS: CREATININE 1.1 mg/dL (0.55-1.3); PHOSPHOROUS 2.4 mg/dL (2.5-4.9)
[2023-03-14 09:16] LABS: BILIRUBIN,TOTAL 0.8 mg/dL (0.2-1); TOT PROT 6.2 g/dl (6.4-8.2)
[2023-03-14] MEDS: AMINO ACIDS 4.25%/D5W 1,000 ML IV SCH (09:59)
[2023-03-14] MEDS: FERROUS SO4 325 MG TABLET (FP) PO SCH (10:00)
[2023-03-14] MEDS: THIAMINE HCL 200 MG/2 ML VIAL IVPB SCH (10:00)
[2023-03-14] MEDS: levETIRAcetam 500 MG TABLET (FP) PO SCH (10:00)
[2023-03-14] MEDS: MULTIVITAMINS (DAILY MVI) TABLET (FP) PO SCH (10:00)
[2023-03-14] MEDS ORDERED: NAPH,MB-DB/K PH,MBDB POWDER PACKET PO ONE (13:00)
[2023-03-14 17:36] VITALS: RESP 16
[2023-03-14] MEDS: WARFARIN NA 5 MG TABLET PO SCH (17:43)
[2023-03-14 19:19] VITALS: BP 121/83; PULSE 80; TEMP 98.3
== END 2023-03-14 20:16 | disposition home or self-care (01) | DRG 808 ==
LOC: JER 18:11 → JERBED 21:43 → J4S 03-05 02:33 → J5S 03-07 13:16
PROVIDERS: ADMIT Internal Medicine
PROC: 30233N1 Transfusion of Nonautologous Red Blood Cells into Peripheral Vein, Percutaneous Approach (ICD-10-PCS; principal; 2023-03-03)
DX: D59.4 Other nonautoimmune hemolytic anemias (principal); E43 Unspecified severe protein-calorie malnutrition; I50.33 Acute on chronic diastolic (congestive) heart failure; J18.9 Pneumonia, unspecified organism; N39.0 Urinary tract infection, site not specified; J98.11 Atelectasis; J90 Pleural effusion, not elsewhere classified; N17.9 Acute kidney failure, unspecified; I48.20 Chronic atrial fibrillation, unspecified; Z68.1 Body mass index [BMI] 19.9 or less, adult; I11.0 Hypertensive heart disease with heart failure; D64.9 Anemia, unspecified; G40.909 Epilepsy, unspecified, not intractable, without status epilepticus; G30.9 Alzheimer's disease, unspecified; I27.20 Pulmonary hypertension, unspecified; I48.91 Unspecified atrial fibrillation; I44.0 Atrioventricular block, first degree; R74.01 Elevation of levels of liver transaminase levels; B95.2 Enterococcus as the cause of diseases classified elsewhere; F02.80 Dementia in other diseases classified elsewhere, unspecified severity, without behavioral disturbance, psychotic disturbance, mood disturbance, and anxiety
CPT/HCPCS: 36415; 36430; 70450-TC; 71045-TC-FY; 73110-TC-LT-FY; 73130-TC-LT-FY; 73200-TC-RT; 74018-TC-FY; 74176-TC; 76705-TC; 80048; 80053; 80061; 80076; 81003; 82248; 82272; 82550; 82553; 82607; 82728; 82746; 82784; 82962; 82977; 83010; 83516; 83540; 83550; 83615; 83735; 83880; 84100; 84484; 85025; 85027; 85045; 85384; 85610; 85730; 86038; 86704; 86738; 86803; 86850; 86880; 86900; 86901; 86922; 87086; 87186; 87340; 87517; 93005; 93010; 93306-TC; 97116-GP; 97161-GP; 99285-25; P9058

== ENCOUNTER 2023-03-24 11:27 | Inpatient (IN) | payer OTHER ==
[2023-03-24 12:55] LABS: BASO % 0.5 % (0-2.0); EOS % 2.4 % (0-4.5); HEMATOCRIT 22.3 % (32.4-45.2); HEMOGLOBIN 7.4 GM/dL (10.7-15.3); LYMPH % 11.3 % (8-40); MCH 32.1 pg (25.7-33.7); MCHC 33.2 g/dl (32.0-36.0); MEAN CELL VOLUME 96.4 fl (80-96); MEAN PLT VOLUME 9.7 fl (7.5-11.1); MONO % 3.9 % (3.8-10.2); NEUT % 81.9 % (42.8-82.8); PLATELET COUNT 239 10^3/uL (134-434); RBC 2.32 M/mm3 (3.60-5.2); RDW 21.5 % (11.6-15.6); WHITE BLOOD COUNT 10.3 K/mm3 (4.0-10.0)
[2023-03-24 13:02] LABS: PROTHROMBIN TIME (PATIENT) 81.3 SEC (9.7-13.0)
[2023-03-24 13:05] LABS: ACTIVATED PTT 41.3 SECONDS (25.2-36.5)
[2023-03-24 13:14] LABS: POTASSIUM 4.1 mmol/L (3.5-5.1)
[2023-03-24 13:15] LABS: ANISOCYTOSIS 2+; MACROCYTOSIS 1+
[2023-03-24 13:16] LABS: ALBUMIN 2.7 g/dl (3.4-5.0); CALCIUM 7.6 mg/dL (8.5-10.1); MAGNESIUM 1.7 mg/dL (1.8-2.4)
[2023-03-24 13:17] LABS: INR 7.15 (0.83-1.09)
[2023-03-24 13:19] LABS: CREATININE 1.2 mg/dL (0.55-1.3)
[2023-03-24 13:21] LABS: BILIRUBIN,TOTAL 1.3 mg/dL (0.2-1); TOT PROT 6.6 g/dl (6.4-8.2)
[2023-03-24] MEDS ORDERED: MAGNESIUM SULFATE IN WATER 2 GM/50 ML IVPB IVPB ONE (16:40)
[2023-03-24] MEDS ORDERED: MAGNESIUM 2GM/50ML STERILE WATER IVPB IVPB ONE (17:00)
[2023-03-24 18:17] LABS: EPI CELLS >36 /uL (0-25.1); HYALINE CASTS 13 /uL (0-3.1); PH,URINE 5.5 (5.0-8.0); URINE APPEARANCE TURBID; URINE BILIRUBIN NEGATIVE (NEGATIVE); URINE COLOR ORANGE; URINE GLUCOSE (UA) NEGATIVE (NEGATIVE); URINE KETONE NEGATIVE (NEGATIVE); URINE LEUK ESTERASE 2+ (NEGATIVE); URINE NITRITE NEGATIVE (NEGATIVE); URINE PROTEIN 3+ (NEGATIVE); URINE WBC 432 /uL (0-25.8)
[2023-03-24 19:55] LABS: BASO % 0.3 % (0-2.0); EOS % 1.3 % (0-4.5); HEMATOCRIT 27.5 % (32.4-45.2); HEMOGLOBIN 9.1 GM/dL (10.7-15.3); LYMPH % 5.4 % (8-40); MCH 29.9 pg (25.7-33.7); MCHC 33.2 g/dl (32.0-36.0); MEAN CELL VOLUME 90.2 fl (80-96); MEAN PLT VOLUME 10.6 fl (7.5-11.1); MONO % 3.2 % (3.8-10.2); NEUT % 89.8 % (42.8-82.8); PLATELET COUNT 243 10^3/uL (134-434); RBC 3.05 M/mm3 (3.60-5.2); RDW 22.7 % (11.6-15.6)
[2023-03-24] MEDS ORDERED: levETIRAcetam 500 MG TABLET (FP) PO ONE (22:34)
[2023-03-24] MEDS ORDERED: ATORVASTATIN CA 80 MG TABLET (FP) ONE (22:34)
[2023-03-24] MEDS: levETIRAcetam 500 MG TABLET (FP) PO SCH (22:44)
[2023-03-24] MEDS: ATORVASTATIN CA 80 MG TABLET (FP) PO SCH (22:44)
[2023-03-25 09:01] LABS: BILIRUBIN,DIRECT 0.5 mg/dL (0.0-0.2)
[2023-03-25] MEDS: DONEPEZIL HCL 5 MG TABLET (FP) PO SCH (09:26)
[2023-03-25] MEDS: THIAMINE HCL 100 MG TABLET (FP) PO SCH (09:27)
[2023-03-25] MEDS: TORSEMIDE 10 MG TABLET PO SCH (09:27)
[2023-03-25] MEDS: levETIRAcetam 500 MG TABLET (FP) PO SCH ×2 (09:27→21:15)
[2023-03-25] MEDS: FERROUS GLUCONATE 324 MG TAB (FP) PO SCH (09:27)
[2023-03-25] MEDS: MULTIVITAMINS (DAILY MVI) TABLET (FP) PO SCH (09:27)
[2023-03-25 12:38] LABS: VENOUS BASE EXCESS -0.6 mmol/L (-2-2); VENOUS O2 SATURATION 34.6 % (70-80); VENOUS PCO2 39.7 mmHg (38-52); VENOUS PH 7.401 (7.310-7.410)
[2023-03-25 12:56] LABS: BASO % 0.5 % (0-2.0); EOS % 1.5 % (0-4.5); HEMATOCRIT 27.2 % (32.4-45.2); HEMOGLOBIN 8.9 GM/dL (10.7-15.3); LYMPH % 9.3 % (8-40); MCHC 32.9 g/dl (32.0-36.0); MEAN CELL VOLUME 91.3 fl (80-96); MEAN PLT VOLUME 9.8 fl (7.5-11.1); NEUT % 84.7 % (42.8-82.8); PLATELET COUNT 237 10^3/uL (134-434); RBC 2.98 M/mm3 (3.60-5.2); RDW 24.1 % (11.6-15.6); RETICULOCYTES 4.04 % (0.5-1.5); WHITE BLOOD COUNT 9.7 K/mm3 (4.0-10.0)
[2023-03-25 13:10] LABS: POTASSIUM 3.9 mmol/L (3.5-5.1)
[2023-03-25 13:11] LABS: ALBUMIN 2.8 g/dl (3.4-5.0)
[2023-03-25 13:12] LABS: CALCIUM 7.8 mg/dL (8.5-10.1); MAGNESIUM 2.3 mg/dL (1.8-2.4)
[2023-03-25 13:13] LABS: BLOOD UREA NITROGEN 38.4 mg/dL (7-18)
[2023-03-25 13:14] LABS: CREATININE 1.2 mg/dL (0.55-1.3)
[2023-03-25 13:18] LABS: BILIRUBIN,TOTAL 1.8 mg/dL (0.2-1); TOT PROT 6.6 g/dl (6.4-8.2)
[2023-03-25 13:37] LABS: PROTHROMBIN TIME (PATIENT) 62.7 SEC (9.7-13.0)
[2023-03-25 13:42] LABS: INR 5.5 (0.83-1.09)
[2023-03-25] MEDS: ATORVASTATIN CA 80 MG TABLET (FP) PO SCH (21:15)
[2023-03-26 09:18] LABS: BASO % 0.4 % (0-2.0); EOS % 1.4 % (0-4.5); LYMPH % 7.2 % (8-40); MCH 30.1 pg (25.7-33.7); MCHC 33.3 g/dl (32.0-36.0); MEAN CELL VOLUME 90.2 fl (80-96); MEAN PLT VOLUME 9.9 fl (7.5-11.1); MONO % 2.7 % (3.8-10.2); NEUT % 88.3 % (42.8-82.8); PLATELET COUNT 215 10^3/uL (134-434); WHITE BLOOD COUNT 11.3 K/mm3 (4.0-10.0)
[2023-03-26 09:22] LABS: PROTHROMBIN TIME (PATIENT) 53.7 SEC (9.7-13.0)
[2023-03-26 09:32] LABS: INR 4.7 (0.83-1.09)
[2023-03-26 09:42] LABS: POTASSIUM 4.3 mmol/L (3.5-5.1)
[2023-03-26 09:46] LABS: BLOOD UREA NITROGEN 41.7 mg/dL (7-18)
[2023-03-26 09:47] LABS: ALBUMIN 2.8 g/dl (3.4-5.0); CALCIUM 8.1 mg/dL (8.5-10.1)
[2023-03-26 09:51] LABS: CREATININE 1.1 mg/dL (0.55-1.3)
[2023-03-26 09:53] LABS: BILIRUBIN,TOTAL 1.6 mg/dL (0.2-1); TOT PROT 6.6 g/dl (6.4-8.2)
[2023-03-26] MEDS: THIAMINE HCL 100 MG TABLET (FP) PO SCH (12:09)
[2023-03-26] MEDS: DONEPEZIL HCL 5 MG TABLET (FP) PO SCH (12:10)
[2023-03-26] MEDS: FERROUS GLUCONATE 324 MG TAB (FP) PO SCH (12:10)
[2023-03-26] MEDS: MULTIVITAMINS (DAILY MVI) TABLET (FP) PO SCH (12:10)
[2023-03-26] MEDS: FOLIC ACID 1 MG TABLET (FP) PO SCH (12:10)
[2023-03-26] MEDS: levETIRAcetam 500 MG TABLET (FP) PO SCH ×3 (12:10→21:49)
[2023-03-26] MEDS: TORSEMIDE 10 MG TABLET PO SCH (12:10)
[2023-03-26] MEDS: ATORVASTATIN CA 80 MG TABLET (FP) PO SCH ×2 (21:37→21:49)
[2023-03-27] MEDS: levETIRAcetam 500 MG TABLET (FP) PO SCH ×2 (10:44→21:19)
[2023-03-27] MEDS: FOLIC ACID 1 MG TABLET (FP) PO SCH (10:44)
[2023-03-27] MEDS: THIAMINE HCL 100 MG TABLET (FP) PO SCH (10:44)
[2023-03-27] MEDS: MULTIVITAMINS (DAILY MVI) TABLET (FP) PO SCH (10:44)
[2023-03-27] MEDS: DONEPEZIL HCL 5 MG TABLET (FP) PO SCH (10:44)
[2023-03-27] MEDS: TORSEMIDE 10 MG TABLET PO SCH (10:45)
[2023-03-27 10:46] LABS: HEMATOCRIT 27.1 % (32.4-45.2); MCH 29.8 pg (25.7-33.7); MEAN CELL VOLUME 90.2 fl (80-96); MEAN PLT VOLUME 9.8 fl (7.5-11.1); PLATELET COUNT 247 10^3/uL (134-434); RBC 3.01 M/mm3 (3.60-5.2); WHITE BLOOD COUNT 13.6 K/mm3 (4.0-10.0)
[2023-03-27 10:57] LABS: POTASSIUM 3.6 mmol/L (3.5-5.1)
[2023-03-27 11:13] LABS: ANISOCYTOSIS 1+; MACROCYTOSIS 0
[2023-03-27 11:17] LABS: ALBUMIN 2.8 g/dl (3.4-5.0); BLOOD UREA NITROGEN 45.1 mg/dL (7-18); CALCIUM 7.8 mg/dL (8.5-10.1); MAGNESIUM 1.7 mg/dL (1.8-2.4)
[2023-03-27 11:20] LABS: CREATININE 1.4 mg/dL (0.55-1.3); PHOSPHOROUS 3.7 mg/dL (2.5-4.9)
[2023-03-27 11:21] LABS: TOT PROT 6.8 g/dl (6.4-8.2)
[2023-03-27 11:22] LABS: BILIRUBIN,TOTAL 1.8 mg/dL (0.2-1)
[2023-03-27 12:00] LABS: INR 3.54 (0.83-1.09); PROTHROMBIN TIME (PATIENT) 40.5 SEC (9.7-13.0)
[2023-03-27 18:09] LABS: FREE KAPPA,SERUM 124.1 mg/L (3.3-19.4)
[2023-03-27] MEDS: ATORVASTATIN CA 80 MG TABLET (FP) PO SCH ×2 (21:19→21:26)
[2023-03-28 07:26] LABS: BASO % 0.3 % (0-2.0); EOS % 1.6 % (0-4.5); HEMATOCRIT 25.9 % (32.4-45.2); HEMOGLOBIN 8.6 GM/dL (10.7-15.3); LYMPH % 5.6 % (8-40); MCH 29.8 pg (25.7-33.7); MCHC 33.1 g/dl (32.0-36.0); MEAN PLT VOLUME 9.6 fl (7.5-11.1); MONO % 3.4 % (3.8-10.2); NEUT % 89.1 % (42.8-82.8); PLATELET COUNT 217 10^3/uL (134-434); RBC 2.88 M/mm3 (3.60-5.2); RDW 22.2 % (11.6-15.6)
[2023-03-28 07:38] LABS: POTASSIUM 3.4 mmol/L (3.5-5.1)
[2023-03-28 07:42] LABS: CALCIUM 7.6 mg/dL (8.5-10.1)
[2023-03-28 07:43] LABS: ALBUMIN 2.7 g/dl (3.4-5.0); BLOOD UREA NITROGEN 52.1 mg/dL (7-18)
[2023-03-28 07:46] LABS: CREATININE 1.4 mg/dL (0.55-1.3)
[2023-03-28 07:47] LABS: BILIRUBIN,TOTAL 1.3 mg/dL (0.2-1)
[2023-03-28 07:48] LABS: TOT PROT 6.4 g/dl (6.4-8.2)
[2023-03-28 08:26] LABS: INR 2.07 (0.83-1.09); PROTHROMBIN TIME (PATIENT) 23.8 SEC (9.7-13.0)
[2023-03-28 08:47] LABS: ANISOCYTOSIS 2+; MACROCYTOSIS 1+
[2023-03-28] MEDS: MULTIVITAMINS (DAILY MVI) TABLET (FP) PO SCH (09:20)
[2023-03-28] MEDS: DONEPEZIL HCL 5 MG TABLET (FP) PO SCH (09:20)
[2023-03-28] MEDS: levETIRAcetam 500 MG TABLET (FP) PO SCH ×2 (09:20→21:17)
[2023-03-28] MEDS: THIAMINE HCL 100 MG TABLET (FP) PO SCH (09:20)
[2023-03-28] MEDS: FOLIC ACID 1 MG TABLET (FP) PO SCH (09:21)
[2023-03-28] MEDS: TORSEMIDE 10 MG TABLET PO SCH ×2 (09:21→09:41)
[2023-03-28 14:43] LABS: EPI CELLS 0 /uL (0-25.1); HYALINE CASTS 0 /uL (0-3.1); PH,URINE 5.5 (5.0-8.0); URINE APPEARANCE CLOUDY; URINE BILIRUBIN NEGATIVE (NEGATIVE); URINE COLOR DK YELLOW; URINE GLUCOSE (UA) NEGATIVE (NEGATIVE); URINE KETONE NEGATIVE (NEGATIVE); URINE LEUK ESTERASE 2+ (NEGATIVE); URINE NITRITE POSITIVE (NEGATIVE); URINE PROTEIN 2+ (NEGATIVE); URINE RBC 52 /uL (0-23.9); URINE WBC 318 /uL (0-25.8)
[2023-03-28 15:03] LABS: URINE BACTERIA 548 /uL (0-1359); URINE CRYSTALS NONE SEEN /hpf; YEAST NONE SEEN (NEGATIVE)
[2023-03-28] MEDS ORDERED: LACTATED RINGERS SOLUTION 1000 ML INFUS.BAG IV ONE (16:23)
[2023-03-28] MEDS: ASPIRIN COATED 81 MG TABLET.EC PO SCH (16:59)
[2023-03-28] MEDS: AMPICILLIN NA/SULBACTAM NA 1.5 GM in SODIUM CHLORIDE 100 ML IVPB SCH (16:59)
[2023-03-28] MEDS ORDERED: MAGNESIUM SULF 50% (8.12 MEQ/2 ML-1 GM VIAL) IVPB ONE (18:00)
[2023-03-28] MEDS ORDERED: POTASSIUM CHLORIDE ORAL LIQUID 20 MEQ/15 ML PO ONE (18:00)
[2023-03-28] MEDS: ATORVASTATIN CA 80 MG TABLET (FP) PO SCH (21:16)
[2023-03-29] MEDS: AMPICILLIN NA/SULBACTAM NA 1.5 GM in SODIUM CHLORIDE 100 ML IVPB SCH (05:47)
[2023-03-29 10:49] LABS: INR 1.44 (0.83-1.09); PROTHROMBIN TIME (PATIENT) 16.6 SEC (9.7-13.0)
[2023-03-29 10:52] LABS: BASO % 0.3 % (0-2.0); EOS % 1.3 % (0-4.5); HEMATOCRIT 24.2 % (32.4-45.2); HEMOGLOBIN 8.2 GM/dL (10.7-15.3); LYMPH % 5.1 % (8-40); MCH 30.2 pg (25.7-33.7); MEAN CELL VOLUME 88.9 fl (80-96); MEAN PLT VOLUME 10.1 fl (7.5-11.1); MONO % 3.2 % (3.8-10.2); NEUT % 90.1 % (42.8-82.8); PLATELET COUNT 223 10^3/uL (134-434); RBC 2.72 M/mm3 (3.60-5.2); RDW 22.1 % (11.6-15.6); WHITE BLOOD COUNT 13.7 K/mm3 (4.0-10.0)
[2023-03-29 11:22] LABS: ALBUMIN 2.5 g/dl (3.4-5.0); CALCIUM 8.1 mg/dL (8.5-10.1)
[2023-03-29 11:25] LABS: PHOSPHOROUS 3.3 mg/dL (2.5-4.9)
[2023-03-29 11:26] LABS: TOT PROT 6.3 g/dl (6.4-8.2)
[2023-03-29 11:28] LABS: CREATININE 1.4 mg/dL (0.55-1.3)
[2023-03-29 11:42] LABS: MAGNESIUM 2.1 mg/dL (1.8-2.4)
[2023-03-29 12:02] LABS: BILIRUBIN,TOTAL 1.3 mg/dL (0.2-1)
[2023-03-29] MEDS: levETIRAcetam 500 MG TABLET (FP) PO SCH ×2 (12:39→21:03)
[2023-03-29] MEDS: THIAMINE HCL 100 MG TABLET (FP) PO SCH (12:39)
[2023-03-29] MEDS: TORSEMIDE 10 MG TABLET PO SCH (12:39)
[2023-03-29] MEDS: FOLIC ACID 1 MG TABLET (FP) PO SCH (12:39)
[2023-03-29] MEDS: DONEPEZIL HCL 5 MG TABLET (FP) PO SCH (12:39)
[2023-03-29] MEDS: ASPIRIN COATED 81 MG TABLET.EC PO SCH (12:39)
[2023-03-29] MEDS: MULTIVITAMINS (DAILY MVI) TABLET (FP) PO SCH (12:39)
[2023-03-29] MEDS ORDERED: CEFEPIME HCL 1 GM VIAL (RESTRICTED TO ID) IVPB ONE (13:10)
[2023-03-29] MEDS ORDERED: CEFEPIME 1 GM in DEXTROSE 5%-WATER 100 ML IVPB ONE (13:45)
[2023-03-29] MEDS ORDERED: VANCOMYCIN 500 MG in DEXTROSE 5%-WATER - 100 ML IVPB ONE (14:00)
[2023-03-29] MEDS: CEFTRIAXONE 1 GM in DEXTROSE 5%-WATER - 50 ML IVPB SCH (14:42)
[2023-03-29] MEDS: ATORVASTATIN CA 80 MG TABLET (FP) PO SCH (21:03)
[2023-03-30] MEDS: DONEPEZIL HCL 5 MG TABLET (FP) PO SCH (09:25)
[2023-03-30] MEDS: CEFTRIAXONE 1 GM in DEXTROSE 5%-WATER - 50 ML IVPB SCH (09:25)
[2023-03-30] MEDS: levETIRAcetam 500 MG TABLET (FP) PO SCH ×2 (09:25→21:03)
[2023-03-30] MEDS: THIAMINE HCL 100 MG TABLET (FP) PO SCH (09:25)
[2023-03-30] MEDS: MULTIVITAMINS (DAILY MVI) TABLET (FP) PO SCH (09:25)
[2023-03-30] MEDS: FOLIC ACID 1 MG TABLET (FP) PO SCH (09:25)
[2023-03-30] MEDS: TORSEMIDE 10 MG TABLET PO SCH (09:25)
[2023-03-30] MEDS: ASPIRIN COATED 81 MG TABLET.EC PO SCH (09:26)
[2023-03-30] MEDS ORDERED: CEFEPIME 0.5 GM in DEXTROSE 5%-WATER - 100 ML IVPB SCH (10:00)
[2023-03-30 10:11] LABS: BASO % 0.6 % (0-2.0); EOS % 3.5 % (0-4.5); HEMATOCRIT 23.8 % (32.4-45.2); HEMOGLOBIN 8.2 GM/dL (10.7-15.3); LYMPH % 8.8 % (8-40); MCH 30.9 pg (25.7-33.7); MCHC 34.4 g/dl (32.0-36.0); MEAN CELL VOLUME 89.6 fl (80-96); MEAN PLT VOLUME 9.5 fl (7.5-11.1); MONO % 3.6 % (3.8-10.2); NEUT % 83.5 % (42.8-82.8); PLATELET COUNT 222 10^3/uL (134-434); RBC 2.66 M/mm3 (3.60-5.2); RDW 21.1 % (11.6-15.6); WHITE BLOOD COUNT 10.6 K/mm3 (4.0-10.0)
[2023-03-30 10:21] LABS: POTASSIUM 3.9 mmol/L (3.5-5.1)
[2023-03-30 10:27] LABS: CALCIUM 8.2 mg/dL (8.5-10.1)
[2023-03-30 10:28] LABS: ALBUMIN 2.5 g/dl (3.4-5.0); BLOOD UREA NITROGEN 55.2 mg/dL (7-18)
[2023-03-30 10:31] LABS: CREATININE 1.5 mg/dL (0.55-1.3)
[2023-03-30 10:32] LABS: BILIRUBIN,TOTAL 1.2 mg/dL (0.2-1); TOT PROT 6.4 g/dl (6.4-8.2)
[2023-03-30 19:56] VITALS: BMI 16.3
[2023-03-30] MEDS: ATORVASTATIN CA 80 MG TABLET (FP) PO SCH ×2 (21:03→21:08)
[2023-03-31 09:02] LABS: BASO % 0.6 % (0-2.0); EOS % 3.2 % (0-4.5); HEMATOCRIT 23.5 % (32.4-45.2); HEMOGLOBIN 7.7 GM/dL (10.7-15.3); LYMPH % 12.2 % (8-40); MCH 30.1 pg (25.7-33.7); MEAN CELL VOLUME 91.1 fl (80-96); MEAN PLT VOLUME 10.1 fl (7.5-11.1); MONO % 4.7 % (3.8-10.2); NEUT % 79.3 % (42.8-82.8); PLATELET COUNT 269 10^3/uL (134-434); RBC 2.57 M/mm3 (3.60-5.2); RDW 21.2 % (11.6-15.6)
[2023-03-31 09:12] LABS: CALCIUM 8.1 mg/dL (8.5-10.1)
[2023-03-31 09:13] LABS: BLOOD UREA NITROGEN 56.4 mg/dL (7-18)
[2023-03-31 09:16] LABS: CREATININE 1.5 mg/dL (0.55-1.3)
[2023-03-31] MEDS: THIAMINE HCL 100 MG TABLET (FP) PO SCH (09:18)
[2023-03-31] MEDS: levETIRAcetam 500 MG TABLET (FP) PO SCH ×3 (09:18→21:27)
[2023-03-31] MEDS: FOLIC ACID 1 MG TABLET (FP) PO SCH (09:18)
[2023-03-31] MEDS: MULTIVITAMINS (DAILY MVI) TABLET (FP) PO SCH (09:18)
[2023-03-31] MEDS: TORSEMIDE 10 MG TABLET PO SCH (09:18)
[2023-03-31] MEDS: ASPIRIN COATED 81 MG TABLET.EC PO SCH (09:18)
[2023-03-31] MEDS: CEFTRIAXONE 1 GM in DEXTROSE 5%-WATER - 50 ML IVPB SCH (09:18)
[2023-03-31] MEDS: DONEPEZIL HCL 5 MG TABLET (FP) PO SCH (09:19)
[2023-03-31 11:53] LABS: ANISOCYTOSIS 2+; MACROCYTOSIS 0
[2023-03-31] MEDS: ATORVASTATIN CA 80 MG TABLET (FP) PO SCH ×2 (21:23→21:27)
[2023-04-01 09:38] LABS: BASO % 0.4 % (0-2.0); EOS % 3.9 % (0-4.5); HEMATOCRIT 23.6 % (32.4-45.2); MCH 30.7 pg (25.7-33.7); MCHC 33.9 g/dl (32.0-36.0); MEAN CELL VOLUME 90.4 fl (80-96); MEAN PLT VOLUME 9.3 fl (7.5-11.1); MONO % 4.5 % (3.8-10.2); NEUT % 78.2 % (42.8-82.8); PLATELET COUNT 275 10^3/uL (134-434); RBC 2.61 M/mm3 (3.60-5.2); RDW 21.6 % (11.6-15.6); WHITE BLOOD COUNT 9.3 K/mm3 (4.0-10.0)
[2023-04-01] MEDS: levETIRAcetam 500 MG TABLET (FP) PO SCH ×2 (09:48→21:52)
[2023-04-01] MEDS: ASPIRIN COATED 81 MG TABLET.EC PO SCH (09:48)
[2023-04-01] MEDS: CEFTRIAXONE 1 GM in DEXTROSE 5%-WATER - 50 ML IVPB SCH (09:48)
[2023-04-01] MEDS: THIAMINE HCL 100 MG TABLET (FP) PO SCH (09:48)
[2023-04-01] MEDS: FOLIC ACID 1 MG TABLET (FP) PO SCH (09:49)
[2023-04-01] MEDS: TORSEMIDE 10 MG TABLET PO SCH (09:49)
[2023-04-01] MEDS: MULTIVITAMINS (DAILY MVI) TABLET (FP) PO SCH (09:49)
[2023-04-01] MEDS: DONEPEZIL HCL 5 MG TABLET (FP) PO SCH (09:49)
[2023-04-01 09:55] LABS: POTASSIUM 4.1 mmol/L (3.5-5.1)
[2023-04-01 10:00] LABS: BLOOD UREA NITROGEN 58.1 mg/dL (7-18); CALCIUM 8.4 mg/dL (8.5-10.1)
[2023-04-01 10:04] LABS: CREATININE 1.6 mg/dL (0.55-1.3)
[2023-04-01] MEDS ORDERED: PIPERACILLIN/TAZOB 3.375 GM 3.375 GM in DEXTROSE 5%-WATER - 50 ML IVPB SCH (10:15)
[2023-04-01] MEDS ORDERED: PIPERACILLIN/TAZOB 2.25 GM 2.25 GM in DEXTROSE 5%-WATER - 50 ML IVPB SCH (11:15)
[2023-04-01] MEDS: PIPERACILLIN/TAZOB 2.25 GM 2.25 GM in DEXTROSE 5%-WATER - 50 ML IVPB SCH ×2 (12:18→21:51)
[2023-04-01] MEDS: ATORVASTATIN CA 80 MG TABLET (FP) PO SCH (21:52)
[2023-04-02] MEDS: PIPERACILLIN/TAZOB 2.25 GM 2.25 GM in DEXTROSE 5%-WATER - 50 ML IVPB SCH ×3 (03:12→18:43)
[2023-04-02 09:33] LABS: BASO % 0.7 % (0-2.0); EOS % 1.6 % (0-4.5); HEMOGLOBIN 7.6 GM/dL (10.7-15.3); LYMPH % 6.9 % (8-40); MCHC 33.2 g/dl (32.0-36.0); MEAN CELL VOLUME 90.3 fl (80-96); MEAN PLT VOLUME 10.5 fl (7.5-11.1); MONO % 3.4 % (3.8-10.2); NEUT % 87.4 % (42.8-82.8); PLATELET COUNT 320 10^3/uL (134-434); RBC 2.54 M/mm3 (3.60-5.2); RDW 21.6 % (11.6-15.6); WHITE BLOOD COUNT 14.3 K/mm3 (4.0-10.0)
[2023-04-02 09:46] LABS: POTASSIUM 4.2 mmol/L (3.5-5.1)
[2023-04-02 09:50] LABS: CALCIUM 8.2 mg/dL (8.5-10.1)
[2023-04-02 09:51] LABS: ALBUMIN 2.6 g/dl (3.4-5.0); BLOOD UREA NITROGEN 55.2 mg/dL (7-18); MAGNESIUM 1.8 mg/dL (1.8-2.4)
[2023-04-02] MEDS: FOLIC ACID 1 MG TABLET (FP) PO SCH (09:52)
[2023-04-02] MEDS: MULTIVITAMINS (DAILY MVI) TABLET (FP) PO SCH (09:52)
[2023-04-02] MEDS: ASPIRIN COATED 81 MG TABLET.EC PO SCH (09:52)
[2023-04-02] MEDS: levETIRAcetam 500 MG TABLET (FP) PO SCH (09:52)
[2023-04-02] MEDS: THIAMINE HCL 100 MG TABLET (FP) PO SCH (09:52)
[2023-04-02] MEDS: TORSEMIDE 10 MG TABLET PO SCH (09:52)
[2023-04-02] MEDS: DONEPEZIL HCL 5 MG TABLET (FP) PO SCH (09:52)
[2023-04-02 09:54] LABS: CREATININE 1.5 mg/dL (0.55-1.3); PHOSPHOROUS 4.5 mg/dL (2.5-4.9)
[2023-04-02 09:55] LABS: BILIRUBIN,TOTAL 0.8 mg/dL (0.2-1)
[2023-04-02 09:56] LABS: TOT PROT 6.8 g/dl (6.4-8.2)
[2023-04-02 18:29] VITALS: BP 126/78; PULSE 86; RESP 18; TEMP 99
== END 2023-04-02 21:03 | DRG 811 ==
LOC: JER 11:27 → JERBED 14:25 → J5S 03-25 18:53
PROVIDERS: ADMIT Student in an Organized Health Care Education/Training Program; ATTEND Internal Medicine
PROC: 30233N1 Transfusion of Nonautologous Red Blood Cells into Peripheral Vein, Percutaneous Approach (ICD-10-PCS; principal; 2023-03-24)
DX: D58.9 Hereditary hemolytic anemia, unspecified (principal); E43 Unspecified severe protein-calorie malnutrition; I69.354 Hemiplegia and hemiparesis following cerebral infarction affecting left non-dominant side; I50.32 Chronic diastolic (congestive) heart failure; N39.0 Urinary tract infection, site not specified; N17.9 Acute kidney failure, unspecified; Z68.1 Body mass index [BMI] 19.9 or less, adult; R64 Cachexia; G40.909 Epilepsy, unspecified, not intractable, without status epilepticus; I48.91 Unspecified atrial fibrillation; Z79.01 Long term (current) use of anticoagulants; G30.9 Alzheimer's disease, unspecified; F02.80 Dementia in other diseases classified elsewhere, unspecified severity, without behavioral disturbance, psychotic disturbance, mood disturbance, and anxiety; R74.01 Elevation of levels of liver transaminase levels; R79.1 Abnormal coagulation profile; R42 Dizziness and giddiness; Z86.718 Personal history of other venous thrombosis and embolism; B96.5 Pseudomonas (aeruginosa) (mallei) (pseudomallei) as the cause of diseases classified elsewhere
CPT/HCPCS: 36415; 36430; 70450-TC; 71045-TC-FY; 73130-TC-LT-FY; 80048; 80053; 81003; 82248; 82272; 82728; 82747; 82784; 82803; 83010; 83540; 83550; 83615; 83735; 83883; 84100; 84155; 84165; 84443; 84484; 85014; 85025; 85045; 85610; 85730; 86850; 86880; 86900; 86901; 86922; 87086; 87186; 87635; 93005; 93010; 93971; 97116-GP; 97162-GP; 99285-25; G0480; P9058

== ENCOUNTER 2023-04-06 15:06 | Inpatient (IN) | payer OTHER ==
[2023-04-06 17:31] LABS: BASO % 0.3 % (0-2.0); EOS % 1.7 % (0-4.5); HEMATOCRIT 19.2 % (32.4-45.2); LYMPH % 5.7 % (8-40); MCH 30.5 pg (25.7-33.7); MCHC 33.9 g/dl (32.0-36.0); MEAN CELL VOLUME 89.8 fl (80-96); MEAN PLT VOLUME 8.2 fl (7.5-11.1); MONO % 2.7 % (3.8-10.2); NEUT % 89.6 % (42.8-82.8); PLATELET COUNT 351 10^3/uL (134-434); RBC 2.14 M/mm3 (3.60-5.2); RDW 21.9 % (11.6-15.6); WHITE BLOOD COUNT 18.1 K/mm3 (4.0-10.0)
[2023-04-06 17:36] LABS: HEMOGLOBIN 6.5 GM/dL (10.7-15.3)
[2023-04-06 17:42] LABS: INR 1.19 (0.83-1.09); PROTHROMBIN TIME (PATIENT) 13.8 SEC (9.7-13.0)
[2023-04-06 17:44] LABS: ACTIVATED PTT 26.1 SECONDS (25.2-36.5)
[2023-04-06 17:45] LABS: POTASSIUM 4.2 mmol/L (3.5-5.1)
[2023-04-06 17:46] LABS: ALBUMIN 2.5 g/dl (3.4-5.0)
[2023-04-06 17:47] LABS: CALCIUM 7.8 mg/dL (8.5-10.1)
[2023-04-06 17:48] LABS: BLOOD UREA NITROGEN 48.2 mg/dL (7-18)
[2023-04-06 17:51] LABS: CREATININE 1.6 mg/dL (0.55-1.3)
[2023-04-06 17:53] LABS: TOT PROT 6.5 g/dl (6.4-8.2)
[2023-04-06 18:44] LABS: EPI CELLS 16 /uL (0-25.1); HYALINE CASTS 1 /uL (0-3.1); URINE APPEARANCE CLOUDY; URINE BACTERIA 2 /uL (0-1359); URINE BILIRUBIN NEGATIVE (NEGATIVE); URINE COLOR ORANGE; URINE GLUCOSE (UA) NEGATIVE (NEGATIVE); URINE KETONE NEGATIVE (NEGATIVE); URINE LEUK ESTERASE 1+ (NEGATIVE); URINE NITRITE NEGATIVE (NEGATIVE); URINE PROTEIN 2+ (NEGATIVE); URINE UROBILINOGEN 0.2 mg/dL (0.2-1.0); URINE WBC 90 /uL (0-25.8)
[2023-04-06 20:24] LABS: ANISOCYTOSIS 2+; MACROCYTOSIS 0; PLATELET ESTIMATE NORMAL
[2023-04-06] MEDS ORDERED: CEFEPIME HCL 1 GM VIAL (RESTRICTED TO ID) IVPB ONE (20:37)
[2023-04-06 20:55] LABS: ERYTHROCYTE SEDIMENTATION RATE > 140 mm/hr (0-30)
[2023-04-06] MEDS ORDERED: CEFEPIME 1 GM in DEXTROSE 5%-WATER 100 ML IVPB ONE (21:00)
[2023-04-06 21:09] LABS: URINE RBC 219.4 /uL (0-23.9); YEAST NONE SEEN (NEGATIVE)
[2023-04-06] MEDS ORDERED: CEFEPIME 1 GM/100 ML BAG IVPB ONE (22:08)
[2023-04-06] MEDS: SODIUM CHLORIDE 1,000 ML IV SCH (22:16)
[2023-04-06] MEDS ORDERED: ALBUTEROL SO4 2.5/IPRATROPIUM 0.5 INH SOL 3 ML VIAL.NEB. NEB ONE (22:55)
[2023-04-06] MEDS: VANCOMYCIN 1 GRAM (PRE-DOCKED) 1,000 MG/250 ML BAG IVPB ONE ×2 (23:38)
[2023-04-07 09:15] LABS: BASO % 0.4 % (0-2.0); EOS % 2.1 % (0-4.5); HEMATOCRIT 23.8 % (32.4-45.2); LYMPH % 6.7 % (8-40); MCH 30.4 pg (25.7-33.7); MCHC 33.7 g/dl (32.0-36.0); MEAN CELL VOLUME 90.1 fl (80-96); MEAN PLT VOLUME 9.6 fl (7.5-11.1); MONO % 3.8 % (3.8-10.2); PLATELET COUNT 315 10^3/uL (134-434); RBC 2.65 M/mm3 (3.60-5.2); WHITE BLOOD COUNT 14.1 K/mm3 (4.0-10.0)
[2023-04-07] MEDS: FOLIC ACID 1 MG TABLET (FP) PO SCH (09:24)
[2023-04-07] MEDS: MULTIVITAMINS (DAILY MVI) TABLET (FP) PO SCH (09:24)
[2023-04-07] MEDS: ASPIRIN COATED 81 MG TABLET.EC PO SCH (09:24)
[2023-04-07] MEDS: THIAMINE HCL 100 MG TABLET (FP) PO SCH (09:24)
[2023-04-07] MEDS: levETIRAcetam 500 MG TABLET (FP) PO SCH ×2 (09:24→22:20)
[2023-04-07] MEDS ORDERED: FAMOTIDINE 10 MG TABLET PO SCH (10:00)
[2023-04-07 10:04] LABS: POTASSIUM 3.6 mmol/L (3.5-5.1)
[2023-04-07 10:06] LABS: CALCIUM 7.6 mg/dL (8.5-10.1)
[2023-04-07 10:12] LABS: ALBUMIN 2.3 g/dl (3.4-5.0); CREATININE 1.4 mg/dL (0.55-1.3)
[2023-04-07 10:13] LABS: BILIRUBIN,TOTAL 0.8 mg/dL (0.2-1)
[2023-04-07 10:16] LABS: TOT PROT 6.1 g/dl (6.4-8.2)
[2023-04-07 15:04] VITALS: BMI 15.0
[2023-04-07 15:16] VITALS: RESP 18
[2023-04-07] MEDS ORDERED: DONEPEZIL HCL 5 MG TABLET (FP) PO SCH (22:00)
[2023-04-07] MEDS ORDERED: ATORVASTATIN CA 80 MG TABLET (FP) PO SCH (22:00)
[2023-04-08] MEDS: SODIUM CHLORIDE 1,000 ML IV SCH (04:02)
[2023-04-08] MEDS: FOLIC ACID 1 MG TABLET (FP) PO SCH (09:19)
[2023-04-08] MEDS: MULTIVITAMINS (DAILY MVI) TABLET (FP) PO SCH (09:19)
[2023-04-08] MEDS: ASPIRIN COATED 81 MG TABLET.EC PO SCH (09:19)
[2023-04-08] MEDS: levETIRAcetam 500 MG TABLET (FP) PO SCH (09:19)
[2023-04-08] MEDS: THIAMINE HCL 100 MG TABLET (FP) PO SCH (09:19)
[2023-04-08 10:47] LABS: BASO % 0.5 % (0-2.0); HEMATOCRIT 23.5 % (32.4-45.2); HEMOGLOBIN 7.9 GM/dL (10.7-15.3); LYMPH % 7.4 % (8-40); MCHC 33.7 g/dl (32.0-36.0); MEAN PLT VOLUME 9.4 fl (7.5-11.1); MONO % 3.7 % (3.8-10.2); NEUT % 86.4 % (42.8-82.8); PLATELET COUNT 321 10^3/uL (134-434); RBC 2.55 M/mm3 (3.60-5.2); RDW 19.6 % (11.6-15.6); WHITE BLOOD COUNT 13.2 K/mm3 (4.0-10.0)
[2023-04-08 14:51] VITALS: BP 101/60; PULSE 76; TEMP 98.5
== END 2023-04-08 19:30 | DRG 811 ==
LOC: JER 15:06 → JERBED 19:08 → J8W 23:18
PROVIDERS: ADMIT Internal Medicine; ATTEND Nurse Practitioner Acute Care
PROC: 30233N1 Transfusion of Nonautologous Red Blood Cells into Peripheral Vein, Percutaneous Approach (ICD-10-PCS; principal; 2023-04-06)
DX: D50.9 Iron deficiency anemia, unspecified (principal); E43 Unspecified severe protein-calorie malnutrition; I50.32 Chronic diastolic (congestive) heart failure; N17.9 Acute kidney failure, unspecified; I69.354 Hemiplegia and hemiparesis following cerebral infarction affecting left non-dominant side; Z68.1 Body mass index [BMI] 19.9 or less, adult; D72.829 Elevated white blood cell count, unspecified; R56.9 Unspecified convulsions; G30.9 Alzheimer's disease, unspecified; I48.91 Unspecified atrial fibrillation; K21.9 Gastro-esophageal reflux disease without esophagitis; E78.5 Hyperlipidemia, unspecified; N18.9 Chronic kidney disease, unspecified; F02.80 Dementia in other diseases classified elsewhere, unspecified severity, without behavioral disturbance, psychotic disturbance, mood disturbance, and anxiety
CPT/HCPCS: 0241U-QW; 36415; 36430; 71045-TC-FY; 80053; 81003; 82272; 82550; 85025; 85610; 85651; 85730; 86140; 86922; 87086; 93005; 93010; 97116-GP; 97161-GP; 99285-25; P9058

== ENCOUNTER 2023-05-02 08:58 | Observation (INO) | payer OTHER ==
[2023-05-02 10:00] LABS: HEMATOCRIT 22.9 % (32.4-45.2); HEMOGLOBIN 7.3 G/dL (10.7-15.3); MCH 31.6 pg (25.7-33.7); MCHC 31.7 g/dl (32.0-36.0); MEAN CELL VOLUME 99.4 fl (80-96); MEAN PLT VOLUME 11.4 fl (7.5-11.1); PLATELET COUNT 382.7 10^3/uL (134-434); RDW 25.7 % (11.6-15.6); WHITE BLOOD COUNT 6.9 10^3/uL (4.0-10.8)
[2023-05-02 10:04] LABS: ALBUMIN 3.1 g/dl (3.4-5.0); BILIRUBIN,TOTAL 1.5 mg/dl (0.2-1); CALCIUM 8.3 mg/dl (8.5-10.1); TOT PROT 6.6 g/dl (6.4-8.2)
[2023-05-02 18:00] VITALS: BMI 15.0
[2023-05-02] MEDS ORDERED: ATORVASTATIN CA 80 MG TABLET (FP) PO SCH (22:00)
[2023-05-03 07:59] LABS: HEMATOCRIT 25.5 % (32.4-45.2); HEMOGLOBIN 8.4 G/dL (10.7-15.3); MCH 31.4 pg (25.7-33.7); MCHC 32.8 g/dl (32.0-36.0); MEAN CELL VOLUME 95.8 fl (80-96); MEAN PLT VOLUME 11.9 fl (7.5-11.1); PLATELET COUNT 271.9 10^3/uL (134-434); RBC 2.66 10^6/uL (3.60-5.2); RDW 22.2 % (11.6-15.6); WHITE BLOOD COUNT 6.8 10^3/uL (4.0-10.8)
[2023-05-03 08:39] LABS: CALCIUM 7.8 mg/dl (8.5-10.1); CREATININE 0.8 mg/dl (0.6-1.3); POTASSIUM 3.1 mmol/L (3.5-5.1)
[2023-05-03] MEDS ORDERED: POTASSIUM CHLORIDE ORAL LIQUID 20 MEQ/15 ML PO ONE (09:04)
[2023-05-03] MEDS ORDERED: TORSEMIDE 10 MG TABLET PO SCH (10:00)
[2023-05-03] MEDS ORDERED: FAMOTIDINE 10 MG TABLET PO SCH (10:00)
[2023-05-03] MEDS ORDERED: MULTIVITAMINS (DAILY MVI) TABLET (FP) PO SCH (10:00)
[2023-05-03] MEDS ORDERED: FOLIC ACID 1 MG TABLET (FP) PO SCH (10:00)
[2023-05-03] MEDS ORDERED: THIAMINE HCL 100 MG TABLET (FP) PO SCH (10:00)
[2023-05-03] MEDS ORDERED: ASPIRIN COATED 81 MG TABLET.EC PO SCH (10:00)
[2023-05-03 17:01] VITALS: BP 136/82; PULSE 76; RESP 18; TEMP 97.9
== END 2023-05-03 16:45 ==
LOC: FER 08:58 → FM/S 11:57
PROVIDERS: ADMIT Internal Medicine; ATTEND Internal Medicine
PROC: 30233N1 Transfusion of Nonautologous Red Blood Cells into Peripheral Vein, Percutaneous Approach (ICD-10-PCS; principal; 2023-05-02)
DX: D50.9 Iron deficiency anemia, unspecified (principal); I05.9 Rheumatic mitral valve disease, unspecified; I69.354 Hemiplegia and hemiparesis following cerebral infarction affecting left non-dominant side; I11.0 Hypertensive heart disease with heart failure; I50.9 Heart failure, unspecified; Z86.718 Personal history of other venous thrombosis and embolism; K29.70 Gastritis, unspecified, without bleeding; Z87.440 Personal history of urinary (tract) infections
CPT/HCPCS: 36415; 36430; 80048; 80053; 85027; 86850; 86900; 86901; 86922; 99285-25; G0378; P9058

== ENCOUNTER 2023-06-04 13:45 | Inpatient (IN) | payer OTHER ==
[2023-06-04 15:39] LABS: INR 1.17 (0.83-1.09); PROTHROMBIN TIME (PATIENT) 13.5 SEC (9.7-13.0)
[2023-06-04 15:42] LABS: ACTIVATED PTT 28.8 SECONDS (25.2-36.5)
[2023-06-04 15:43] LABS: HEMATOCRIT 22.7 % (32.4-45.2); HEMOGLOBIN 7.2 G/dL (10.7-15.3); MCH 35.3 pg (25.7-33.7); MCHC 31.9 g/dl (32.0-36.0); MEAN CELL VOLUME 110.5 fl (80-96); PLATELET COUNT 278.9 10^3/uL (134-434); RBC 2.05 10^6/uL (3.60-5.2); RDW 25.7 % (11.6-15.6); WHITE BLOOD COUNT 12.3 10^3/uL (4.0-10.8)
[2023-06-04 15:50] LABS: ALBUMIN 3.2 g/dl (3.4-5.0); BILIRUBIN,TOTAL 1.4 mg/dl (0.2-1); CALCIUM 8.8 mg/dl (8.5-10.1); CREATININE 0.9 mg/dl (0.6-1.3); POTASSIUM 5.4 mmol/L (3.5-5.1); TOT PROT 6.3 g/dl (6.4-8.2)
[2023-06-04] MEDS ORDERED: PIPERACILLIN/TAZOB 3.375 GM 3.375 GM in DEXTROSE 5%-WATER - 50 ML IVPB ONE (16:18)
[2023-06-04] MEDS ORDERED: PANTOPRAZOLE SODIUM 40 MG VIAL IVPUSH ONE (16:19)
[2023-06-04] MEDS ORDERED: PIPERACILLIN/TAZOBACTAM 3.375 GM VIAL IVPB ONE (16:23)
[2023-06-04] MEDS ORDERED: PANTOPRAZOLE SODIUM 40 MG VIAL ONE (16:23)
[2023-06-04 16:51] LABS: URIC ACID CRYSTALS FEW /hpf (NONE SEEN)
[2023-06-04 16:58] LABS: ANISOCYTOSIS 1+; MACROCYTOSIS 2+; PLATELET ESTIMATE ADEQUATE
[2023-06-04] MEDS ORDERED: SODIUM ZIRCONIUM CYCLOSILICATE (LOKELMA) 5 GM PACKET PO ONE (16:58)
[2023-06-04] MEDS ORDERED: SODIUM ZIRCONIUM CYCLOSILICATE (LOKELMA) 5 GM PACKET ONE (17:31)
[2023-06-04 18:47] VITALS: BMI 14.2
[2023-06-05] MEDS ORDERED: ALBUTEROL SO4 2.5/IPRATROPIUM 0.5 INH SOL 3 ML VIAL.NEB. NEB PRN (00:28)
[2023-06-05] MEDS: levETIRAcetam 500 MG/5 ML INJECTION VIAL IVPB SCH ×3 (01:30→21:00)
[2023-06-05] MEDS: PIPERACILLIN/TAZOB 3.375 GM 3.375 GM in DEXTROSE 5%-WATER - 50 ML IVPB SCH ×2 (02:55→09:54)
[2023-06-05 09:00] LABS: CALCIUM 8.6 mg/dl (8.5-10.1); CREATININE 0.8 mg/dl (0.6-1.3)
[2023-06-05] MEDS: TOBRAMYCIN 0.3% OPHTH SOLN 5 ML BOTTLE OD SCH ×3 (09:57→21:01)
[2023-06-05] MEDS: BUDESONIDE/FORMETEROL FUMARATE 80/4.5 mcg INHALER IH SCH ×2 (10:00→21:00)
[2023-06-05] MEDS ORDERED: PANTOPRAZOLE SODIUM 40 MG VIAL IVPUSH SCH (10:00)
[2023-06-05 10:44] LABS: BASO % 0.9 % (0-2.0); EOS % 4.2 % (0-4.5); HEMATOCRIT 25.6 % (32.4-45.2); HEMOGLOBIN 8.6 GM/dL (10.7-15.3); LYMPH % 11.6 % (8-40); MCH 33.5 pg (25.7-33.7); MCHC 33.5 g/dl (32.0-36.0); MEAN PLT VOLUME 9.4 fl (7.5-11.1); MONO % 3.3 % (3.8-10.2); PLATELET COUNT 156 10^3/uL (134-434); RBC 2.56 M/mm3 (3.60-5.2); RDW 24.4 % (11.6-15.6); WHITE BLOOD COUNT 9.1 K/mm3 (4.0-10.0)
[2023-06-05 11:48] LABS: ANISOCYTOSIS 2+; MACROCYTOSIS 0
[2023-06-05] MEDS ORDERED: PIPERACILLIN/TAZOB 3.375 GM 3.375 GM in DEXTROSE 5%-WATER - 50 ML IVPB SCH (18:00)
[2023-06-06 01:21] VITALS: BP 128/76; PULSE 63; RESP 18; TEMP 97.4
[2023-06-06] MEDS ORDERED: PIPERACILLIN/TAZOB 3.375 GM 3.375 GM in DEXTROSE 5%-WATER - 50 ML IVPB SCH (02:00)
== END 2023-06-06 01:30 | DRG 811 ==
LOC: FER 13:45 → FM/S 16:59
PROVIDERS: ADMIT Internal Medicine
PROC: 30233N1 Transfusion of Nonautologous Red Blood Cells into Peripheral Vein, Percutaneous Approach (ICD-10-PCS; principal; 2023-06-04)
DX: D64.9 Anemia, unspecified (principal); J18.9 Pneumonia, unspecified organism; I13.0 Hypertensive heart and chronic kidney disease with heart failure and stage 1 through stage 4 chronic kidney disease, or unspecified chronic kidney disease; I50.32 Chronic diastolic (congestive) heart failure; I24.89 Other forms of acute ischemic heart disease; E46 Unspecified protein-calorie malnutrition; Z68.1 Body mass index [BMI] 19.9 or less, adult; K92.2 Gastrointestinal hemorrhage, unspecified; J44.0 Chronic obstructive pulmonary disease with (acute) lower respiratory infection; E78.5 Hyperlipidemia, unspecified; N18.9 Chronic kidney disease, unspecified; I27.20 Pulmonary hypertension, unspecified; G40.909 Epilepsy, unspecified, not intractable, without status epilepticus; I48.91 Unspecified atrial fibrillation; L89.152 Pressure ulcer of sacral region, stage 2; G30.9 Alzheimer's disease, unspecified; F02.80 Dementia in other diseases classified elsewhere, unspecified severity, without behavioral disturbance, psychotic disturbance, mood disturbance, and anxiety; Z95.2 Presence of prosthetic heart valve; Z86.718 Personal history of other venous thrombosis and embolism
CPT/HCPCS: 36415; 36430; 71045-TC-FY; 80048; 80053; 80177; 81003; 81015; 82272; 84484; 85025; 85027; 85610; 85730; 86850; 86900; 86901; 86922; 87077; 87086; 93005; 99285-25; P9058

== ENCOUNTER 2023-06-18 11:32 | Emergency (ER) | payer OTHER ==
[2023-06-18 12:19] VITALS: BMI 15.3
[2023-06-18 13:39] LABS: HEMATOCRIT 23.7 % (32.4-45.2); HEMOGLOBIN 7.5 G/dL (10.7-15.3); MCH 33.1 pg (25.7-33.7); MCHC 31.4 g/dl (32.0-36.0); MEAN CELL VOLUME 105.4 fl (80-96); MEAN PLT VOLUME 11.2 fl (7.5-11.1); PLATELET COUNT 386.7 10^3/uL (134-434); RBC 2.25 10^6/uL (3.60-5.2); RDW 23.4 % (11.6-15.6); WHITE BLOOD COUNT 8.8 10^3/uL (4.0-10.8)
[2023-06-18 18:06] VITALS: TEMP 98.9
[2023-06-18 21:44] VITALS: BP 108/74; PULSE 80; RESP 16
== END 2023-06-18 23:17 | disposition home or self-care (01) ==
LOC: FER 11:32 → SUPCPDRO 11:32 → FER 23:17
DX: D64.9 Anemia, unspecified (principal)
CPT/HCPCS: 36415; 36430; 85027; 86850; 86900; 86901; 86922; 99285-25; P9058

== ENCOUNTER 2023-07-11 09:25 | Observation (INO) | payer OTHER ==
[2023-07-11 09:50] VITALS: BMI 15.2
[2023-07-11 10:57] LABS: INR 1.1 (0.83-1.09); PROTHROMBIN TIME (PATIENT) 12.8 SEC (9.7-13.0)
[2023-07-11 10:59] LABS: ACTIVATED PTT 28.8 SECONDS (25.2-36.5)
[2023-07-11 11:10] LABS: HEMATOCRIT 18.8 % (32.4-45.2); MCH 34.3 pg (25.7-33.7); MCHC 34.3 g/dl (32.0-36.0); MEAN PLT VOLUME 11.6 fl (7.5-11.1); PLATELET COUNT 445.1 10^3/uL (134-434); RBC 1.88 10^6/uL (3.60-5.2); RDW 31.8 % (11.6-15.6)
[2023-07-11 11:18] LABS: ALBUMIN 3.4 g/dl (3.4-5.0); BILIRUBIN,TOTAL 2.5 mg/dl (0.2-1); CALCIUM 8.9 mg/dl (8.5-10.1); CREATININE 0.7 mg/dl (0.6-1.3); HEMOGLOBIN 6.4 G/dL (10.7-15.3); POTASSIUM 4.2 mmol/L (3.5-5.1); TOT PROT 7.2 g/dl (6.4-8.2)
[2023-07-11 12:53] LABS: ANISOCYTOSIS 2+
[2023-07-11 12:54] LABS: PLATELET ESTIMATE SLT INCREASE; SICKELED CELLS FEW
[2023-07-11 13:00] LABS: N-TERMINAL BNP 5958.3 pg/ml (5-450)
[2023-07-11] MEDS: DONEPEZIL HCL 5 MG TABLET (FP) PO SCH (21:20)
[2023-07-11] MEDS: levETIRAcetam 500 MG TABLET (FP) PO SCH (21:20)
[2023-07-11] MEDS: ATORVASTATIN CA 40 MG TABLET (FP) PO SCH (21:20)
[2023-07-11] MEDS: SENNOSIDES 8.6MG TABLET (FP) PO SCH (21:21)
[2023-07-11] MEDS: MIRTAZAPINE 15 MG TABLET (FP) PO SCH (21:21)
[2023-07-11] MEDS: BUDESONIDE/FORMETEROL FUMARATE 80/4.5 mcg INHALER IH SCH (21:36)
[2023-07-12 01:11] VITALS: RESP 18
[2023-07-12 08:12] LABS: HEMATOCRIT 25.7 % (32.4-45.2); HEMOGLOBIN 8.7 G/dL (10.7-15.3); MCH 31.3 pg (25.7-33.7); MCHC 33.8 g/dl (32.0-36.0); MEAN CELL VOLUME 92.6 fl (80-96); MEAN PLT VOLUME 11.6 fl (7.5-11.1); PLATELET COUNT 371.4 10^3/uL (134-434); RBC 2.77 10^6/uL (3.60-5.2); RDW 26.7 % (11.6-15.6); WHITE BLOOD COUNT 7.6 10^3/uL (4.0-10.8)
[2023-07-12 08:59] LABS: ALBUMIN 3.1 g/dl (3.4-5.0); BILIRUBIN,TOTAL 2.4 mg/dl (0.2-1); CALCIUM 8.6 mg/dl (8.5-10.1); CREATININE 0.6 mg/dl (0.6-1.3); MAGNESIUM 1.7 mg/dL (1.8-2.4); PHOSPHOROUS 3.1 (2.5-4.9); TOT PROT 6.6 g/dl (6.4-8.2)
[2023-07-12 09:21] VITALS: BP 118/72; PULSE 85; TEMP 97.4
[2023-07-12] MEDS: FAMOTIDINE 10 MG TABLET PO SCH (09:42)
[2023-07-12] MEDS: FERROUS SO4 325 MG TABLET (FP) PO SCH (09:42)
[2023-07-12] MEDS: MULTIVITAMINS (DAILY MVI) TABLET (FP) PO SCH (09:42)
[2023-07-12] MEDS: ASPIRIN COATED 81 MG TABLET.EC PO SCH (09:42)
[2023-07-12] MEDS: TORSEMIDE 10 MG TABLET PO SCH (09:42)
[2023-07-12] MEDS: THIAMINE HCL 100 MG TABLET (FP) PO SCH (09:42)
[2023-07-12] MEDS: CALCIUM (OYSTER SHELL) 500 MG TABLET (FP) PO SCH (09:42)
== END 2023-07-12 12:18 ==
LOC: FER 09:25 → FM/S 12:02
PROVIDERS: ADMIT Internal Medicine
DX: D64.9 Anemia, unspecified (principal); G30.9 Alzheimer's disease, unspecified; F02.80 Dementia in other diseases classified elsewhere, unspecified severity, without behavioral disturbance, psychotic disturbance, mood disturbance, and anxiety; I11.0 Hypertensive heart disease with heart failure; I50.9 Heart failure, unspecified; I48.91 Unspecified atrial fibrillation; I69.311 Memory deficit following cerebral infarction; I69.354 Hemiplegia and hemiparesis following cerebral infarction affecting left non-dominant side; G40.909 Epilepsy, unspecified, not intractable, without status epilepticus; E78.5 Hyperlipidemia, unspecified; L98.499 Non-pressure chronic ulcer of skin of other sites with unspecified severity; Z87.440 Personal history of urinary (tract) infections; Z86.718 Personal history of other venous thrombosis and embolism
CPT/HCPCS: 0241U-QW; 36415; 36430; 80053; 83735; 83880; 84100; 84484; 85027; 85610; 85730; 86850; 86900; 86901; 86922; 93005; 96372; 96374; 99285-25; G0378; P9038; P9058

== ENCOUNTER 2023-07-25 08:43 | Emergency (ER) | payer OTHER ==
[2023-07-25 09:09] VITALS: BMI 22.4
[2023-07-25 09:52] LABS: BASO % 1.1 % (0-2.0); EOS % 1.2 % (0-4.5); HEMATOCRIT 19.8 % (32.4-45.2); HEMOGLOBIN 7.1 GM/dL (10.7-15.3); LYMPH % 14.3 % (8-40); MCH 32.5 pg (25.7-33.7); MCHC 35.9 g/dl (32.0-36.0); MEAN CELL VOLUME 90.8 fl (80-96); MEAN PLT VOLUME 9.5 fl (7.5-11.1); MONO % 3.9 % (3.8-10.2); NEUT % 79.5 % (42.8-82.8); PLATELET COUNT 370 10^3/uL (134-434); RBC 2.18 M/mm3 (3.60-5.2); RDW 39.1 % (11.6-15.6); WHITE BLOOD COUNT 7.9 K/mm3 (4.0-10.0)
[2023-07-25 10:06] LABS: INR 1.03 (0.83-1.09)
[2023-07-25 10:09] LABS: ACTIVATED PTT 27.3 SECONDS (25.2-36.5)
[2023-07-25 10:14] LABS: POTASSIUM 5.1 mmol/L (3.5-5.1)
[2023-07-25 10:16] LABS: CALCIUM 9.1 mg/dL (8.5-10.1)
[2023-07-25 10:17] LABS: BLOOD UREA NITROGEN 28.2 mg/dL (7-18)
[2023-07-25 10:20] LABS: CREATININE 0.6 mg/dL (0.55-1.3)
[2023-07-25 10:21] LABS: BILIRUBIN,TOTAL 2.4 mg/dL (0.2-1); TOT PROT 8.1 g/dl (6.4-8.2)
[2023-07-25 14:18] VITALS: BP 118/91; PULSE 79; RESP 19; TEMP 97.5
== END 2023-07-25 20:03 | disposition home or self-care (01) ==
LOC: JER 08:43
DX: D64.9 Anemia, unspecified (principal); E87.71 Transfusion associated circulatory overload; R74.02 Elevation of levels of lactic acid dehydrogenase [LDH]; R53.1 Weakness; D72.829 Elevated white blood cell count, unspecified
CPT/HCPCS: 36415; 36430; 71045-TC-FY; 80053; 85025; 85610; 85730; 86850; 86900; 86901; 86922; 93005; 93010; 99285-25; P9058

== ENCOUNTER 2023-08-06 10:46 | Inpatient (IN) | payer OTHER ==
[2023-08-06 13:13] LABS: EPI CELLS 12 /uL (0-25.1); HYALINE CASTS 3 /uL (0-3.1); PH,URINE 5.5 (5.0-8.0); URINE APPEARANCE TURBID; URINE BACTERIA 198 /uL (0-1359); URINE BILIRUBIN NEGATIVE (NEGATIVE); URINE COLOR DK YELLOW; URINE GLUCOSE (UA) NEGATIVE (NEGATIVE); URINE KETONE NEGATIVE (NEGATIVE); URINE LEUK ESTERASE 3+ (NEGATIVE); URINE NITRITE NEGATIVE (NEGATIVE); URINE PROTEIN 1+ (NEGATIVE); URINE WBC 3953 /uL (0-25.8)
[2023-08-06 13:30] LABS: URINE RBC 185 /uL (0-23.9)
[2023-08-06 13:39] LABS: YEAST PRESENT (NEGATIVE)
[2023-08-06 14:26] LABS: BASO % 0.4 % (0-2.0); EOS % 0.5 % (0-4.5); HEMATOCRIT 18.6 % (32.4-45.2); LYMPH % 8.5 % (8-40); MCH 29.7 pg (25.7-33.7); MCHC 33.5 g/dl (32.0-36.0); MEAN CELL VOLUME 88.5 fl (80-96); MEAN PLT VOLUME 9.2 fl (7.5-11.1); MONO % 4.6 % (3.8-10.2); PLATELET COUNT 355 10^3/uL (134-434); RDW 40.1 % (11.6-15.6); WHITE BLOOD COUNT 13.3 K/mm3 (4.0-10.0)
[2023-08-06 14:30] LABS: HEMOGLOBIN 6.2 GM/dL (10.7-15.3)
[2023-08-06 14:36] LABS: POTASSIUM 4.5 mmol/L (3.5-5.1)
[2023-08-06 14:38] LABS: CALCIUM 8.3 mg/dL (8.5-10.1)
[2023-08-06 14:39] LABS: ALBUMIN 2.6 g/dl (3.4-5.0); BLOOD UREA NITROGEN 27.7 mg/dL (7-18)
[2023-08-06 14:42] LABS: CREATININE 0.7 mg/dL (0.55-1.3)
[2023-08-06 14:43] LABS: BILIRUBIN,TOTAL 1.8 mg/dL (0.2-1)
[2023-08-06 14:44] LABS: TOT PROT 7.1 g/dl (6.4-8.2)
[2023-08-06] MEDS ORDERED: CEFTRIAXONE 1 GM/50 ML BAG ONE (14:45)
[2023-08-06] MEDS: ACETAMINOPHEN 1000 MG/100 ML BAG IVPB ONE (16:57)
[2023-08-06] MEDS: AMINO ACIDS 4.25%/D5W 1,000 ML IV SCH (21:27)
[2023-08-06] MEDS ORDERED: PATIENT'S OWN MEDICATION (NON-FORMULARY) (Aa/Hydrolyzed Collagen, Whey [Lps 15-30 Liquid] PO SCH (22:00)
[2023-08-06] MEDS: levETIRAcetam 500 MG TABLET (FP) PO SCH (22:32)
[2023-08-06] MEDS: MIRTAZAPINE 15 MG TABLET (FP) PO SCH (22:32)
[2023-08-06] MEDS: ATORVASTATIN CA 40 MG TABLET (FP) PO SCH (22:32)
[2023-08-06] MEDS: SENNOSIDES 8.6MG TABLET (FP) PO SCH (22:32)
[2023-08-06] MEDS: levETIRAcetam 500 MG/5 ML INJECTION VIAL IVPB SCH (22:49)
[2023-08-07 05:54] LABS: BASO % 0.4 % (0-2.0); EOS % 0.5 % (0-4.5); HEMATOCRIT 23.3 % (32.4-45.2); HEMOGLOBIN 8.1 GM/dL (10.7-15.3); MCH 30.1 pg (25.7-33.7); MCHC 34.6 g/dl (32.0-36.0); MEAN PLT VOLUME 8.8 fl (7.5-11.1); MONO % 3.3 % (3.8-10.2); NEUT % 86.8 % (42.8-82.8); PLATELET COUNT 287 10^3/uL (134-434); RBC 2.68 M/mm3 (3.60-5.2); RDW 27.7 % (11.6-15.6); WHITE BLOOD COUNT 15.1 K/mm3 (4.0-10.0)
[2023-08-07 06:25] LABS: POTASSIUM 4.4 mmol/L (3.5-5.1)
[2023-08-07 06:29] LABS: BLOOD UREA NITROGEN 33.6 mg/dL (7-18)
[2023-08-07 06:32] LABS: CREATININE 0.6 mg/dL (0.55-1.3)
[2023-08-07 07:32] LABS: ANISOCYTOSIS 2+; MACROCYTOSIS 1+
[2023-08-07] MEDS: CEFTRIAXONE 1 GM in DEXTROSE 5%-WATER - 50 ML IVPB SCH (13:10)
[2023-08-07] MEDS: FERROUS SO4 325 MG TABLET (FP) PO SCH (13:11)
[2023-08-07] MEDS: POTASSIUM CHLORIDE TABS 10 MEQ TABLET.ER (FP) PO SCH (13:11)
[2023-08-07] MEDS: ASPIRIN COATED 81 MG TABLET.EC PO SCH (13:11)
[2023-08-07] MEDS: FAMOTIDINE 10 MG TABLET PO SCH (13:11)
[2023-08-07] MEDS: MULTIVITAMINS (DAILY MVI) TABLET (FP) PO SCH (13:11)
[2023-08-07] MEDS: SODIUM CHLORIDE 500 ML IV STA (13:16)
[2023-08-07 15:21] VITALS: RESP 18
[2023-08-07] MEDS: DONEPEZIL HCL 5 MG TABLET (FP) PO SCH (22:03)
[2023-08-08 14:36] VITALS: BMI 12.1
[2023-08-08 15:18] VITALS: BP 112/71; PULSE 90; TEMP 98.4
== END 2023-08-08 14:55 | DRG 811 ==
LOC: JER 10:46 → JERBED 15:44 → OBSVTOIN 16:48 → J8W 08-07 09:39
PROVIDERS: ADMIT Internal Medicine; ATTEND Nurse Practitioner Acute Care
PROC: 30233N1 Transfusion of Nonautologous Red Blood Cells into Peripheral Vein, Percutaneous Approach (ICD-10-PCS; principal; 2023-08-06)
DX: D64.9 Anemia, unspecified (principal); E43 Unspecified severe protein-calorie malnutrition; L89.154 Pressure ulcer of sacral region, stage 4; I69.354 Hemiplegia and hemiparesis following cerebral infarction affecting left non-dominant side; Z68.1 Body mass index [BMI] 19.9 or less, adult; I50.32 Chronic diastolic (congestive) heart failure; R64 Cachexia; I11.0 Hypertensive heart disease with heart failure; I10 Essential (primary) hypertension; I48.91 Unspecified atrial fibrillation; F03.90 Unspecified dementia, unspecified severity, without behavioral disturbance, psychotic disturbance, mood disturbance, and anxiety; R62.7 Adult failure to thrive; E78.5 Hyperlipidemia, unspecified; Z74.01 Bed confinement status; Z95.2 Presence of prosthetic heart valve; I35.0 Nonrheumatic aortic (valve) stenosis
CPT/HCPCS: 0241U-QW; 36415; 36430; 71045-TC-FY; 80048; 80053; 81003; 85025; 86850; 86900; 86901; 86922; 87086; 93005; 93010; 99285-25; G0378; J0131; P9038; P9058